=== PATIENT | male | born 1975 | race Caucasian/White ===

== ENCOUNTER 2020-08-14 12:23 | Emergency (ER) | payer OTHER, SELFPAY ==
--- NOTE | 2020-08-14 12:27 | ECG_ITS ---
Test Reason : CHEST PAIN Blood Pressure : / mmHG Vent. Rate : 090 BPM Atrial Rate : 090 BPM P-R Int : 152 ms QRS Dur : 086 ms QT Int : 358 ms P-R-T Axes : 078 073 048 degrees QTc Int : 437 ms Normal sinus rhythm Normal ECG When compared with ECG of 06-AUG-2016 09:27, Non-specific change in ST segment in Lateral leads Nonspecific T wave abnormality no longer evident in Inferior leads Nonspecific T wave abnormality no longer evident in Lateral leads Referred By: Cris Friedman Electronically Signed By:KAMALA ESTRADA MD
--- NOTE | 2020-08-14 12:27 | XR_ITS ---
EXAMINATION: XR CHEST CLINICAL INFORMATION: Chest pain COMPARISON: Previous chest x-ray January 2013 and chest CTA July 2016 TECHNIQUE: Frontal view of the chest was obtained. FINDINGS: The cardiac and mediastinal contours are normal. The lungs are clear. There is no pleural effusion or pneumothorax. Bony structures are unremarkable. XR/XR chest 1V IMPRESSION: Unremarkable examination.
[2020-08-14 12:33] VITALS: BP 168/102; PULSE 78; RESP 20; TEMP 37.1; O2SAT 97
--- NOTE | 2020-08-14 12:36 | ED_ITS ---
HPI - Chest Pain General Chief Complaint: Chest Pain Stated Complaint: chest pain Time Seen by Provider: 08/14/20 12:26 Source: patient Mode of arrival: ambulatory Limitations: no limitations History of Present Illness MD complaint: chest pain Pertinent past history: other (myocarditis) Onset (ago): day(s) (last night, did have episode 1 week ago but it resolved) Timing of current episode: constant Prior episodes: Yes Onset: during rest and during exertion Pain location: substernal and left chest Pain radiation: none Severity: moderate Quality: sharp Relieving factors: nothing Exacerbating factors: movement and other (leaning forward) Treatment prior to arrival: aspirin Related Data Home Medications Medication Instructions Recorded Confirmed No Known Home Meds 08/14/20 08/14/20 Allergies Allergy/AdvReac Type Severity Reaction Status Date / Time No Known Allergies Allergy Verified 08/14/20 12:43 Review of Systems Review of Systems: Constitutional : No Weight loss, No Fever, No Chills ENT/Mouth : No sore throat, No Rhinorrhea Eyes: No Eye Pain, No Swelling Cardiovascular : pos Chest Pain, no SOB, no Dyspnea on Exertion, No Orthopnea, No Edema, No Palpitations Respiratory : No Cough, No Sputum Gastrointestinal : pos Nausea, No Vomiting, No Diarrhea, No abdominal Pain, No Hematochezia, No Melena Genitourinary : No Dysuria, No Urinary Frequency Musculoskeletal : No joint pain, No Myalgias, No Joint Swelling Skin : No Skin Lesions, No rash Neuro : No Weakness, No Numbness, No Dizziness, No Headache Psych : No Anxiety/Panic, No Depression Heme/Lymph: No Bruising, No Lymphadenopathy Endocrine : No Polyuria, No Polydipsia All other systems reviewed and are negative [facility] Past Medical History Medical History (Updated 08/14/20 @ 14:56 by Cris Friedman DO) COVID-19 Myocarditis Social History Social History (Updated 08/14/20 @ 12:41 by Cris Friedman DO) Smoking Status: Never smoker Use of substances other than those prescribed or required for medical reasons: No Advance Directives: No Advance Directives Information Provided: No Physical Exam Vital Signs: Vital Signs: Last Vital Signs Temp 98.7 F 08/14/20 12:39 Pulse 66 08/14/20 14:27 Resp 17 08/14/20 14:27 BP 151/94 H 08/14/20 14:27 Pulse Ox 97 08/14/20 14:27 Body Mass Index 24.4 Appearance: Alert. Oriented X3. No acute distress. Eyes: Pupils equal, round and reactive to light. ENT: Pharynx normal. Neck: Normal inspection. Neck supple. CVS: Normal heart rate and rhythm. Pulses normal. No rub heard, pain with leaning forward Respiratory: No respiratory distress. Breath sounds normal. Abdomen: Soft and nontender. Skin: Skin warm and dry. Normal skin color. Normal skin turgor. Extremities: No lower extremity edema. No calf ttp Neuro: Oriented X 3. No motor deficit. No sensory deficit. Course Course Course Narrative: no acute findings stable for DC, trop negative, infl markers negative MDM - Chest Pain MDM Narrative Medical decision making narrative: 44 yo male with hx of COVID 19 in the spring (asymptomatic) and myocarditis 2016 with negative cardiac cath and CTA for dissection at that time, coming in today with sharp chest pain worse with leaning forward - EKG nonischemic will need infl markers, troponin, CXR, ddimer if positive will need PE workup given prior COVID test, declines pain medications Lab Data Result diagrams: 08/14/20 13:04 08/14/20 13:04 Labs: Lab Results 08/14/20 08/14/20 08/14/20 Range/Units 13:04 13:04 13:04 WBC 6.0 (4.8-10.8) X10*3/uL RBC 5.15 (4.60-5.80) X10*6/uL Hgb 15.2 (14.0-18.0) g/dl Hct 43.1 (42-52) % MCV 83.7 (80-98) fL MCH 29.5 (27.0-33.0) pg MCHC 35.3 (31.0-36.0) g/dl RDW 12.3 (11.0-16.0) % Plt Count 208 (160-400) X10*3/uL MPV 9.4 (9.4-12.4) fL Immature Gran % (Auto) 0.3 (0.0-0.4) % Neut % (Auto) 67.8 (45-73) % Lymph % (Auto) 24.2 (20-40) % [place] % (Auto) 6.5 (2-11) % Eos % (Auto) 0.7 (0-4) % Baso % (Auto) 0.5 (0-2) % Lymph # (Auto) 1.5 (1.2-4.9) X10*3/uL [place] # (Auto) 0.4 (0.1-1.2) X10*3/uL Eos # (Auto) 0.0 (0.0-0.4) X10*3/uL Baso # (Auto) 0.0 (0.0-0.2) X10*3/uL Abs Immat Gran (auto) 0.02 (0.00-0.03) X10*3/uL Absolute Neuts (auto) 4.1 (2.0-8.3) X10*3/uL Absolute Nucleated RBC 0.000 (0.0-0.012) X10*3/uL Nucleated RBC % (auto) 0.0 (0.0-0.2) /100WBC ESR (0-15) MM/HR PT 13.5 H (10.8-13.0) SEC INR 1.1 (0.9-1.1) APTT 30.6 (24.1-38.0) SEC D-Dimer < 200 NG/ML Sodium 136 (135-145) mmol/L Potassium 4.0 (3.3-5.1) mmol/l Chloride 103 (96-108) mmol/L Carbon Dioxide 24 (22-29) mmol/L Anion Gap 13 (12-20) BUN 12 (9-16) mg/dL Creatinine 0.81 (0.5-1.4) mg/dL Estim Creat Clear Calc 125.2 Estimated GFR > 60 Random Glucose 97 (60-115) mg/dL Calcium 8.3 L (8.4-10.2) mg/dL Magnesium 2.1 (1.6-2.6) mg/dL Troponin I High Sens (<3.5-35.0) ng/L C-Reactive Protein (< or = 0.50) mg/dL B-Natriuretic Peptide (<100) pg/mL Coronavirus (PCR) (Negative) 08/14/20 08/14/20 08/14/20 Range/Units 13:04 13:04 13:04 WBC (4.8-10.8) X10*3/uL RBC (4.60-5.80) X10*6/uL Hgb (14.0-18.0) g/dl Hct (42-52) % MCV (80-98) fL MCH (27.0-33.0) pg MCHC (31.0-36.0) g/dl RDW (11.0-16.0) % Plt Count (160-400) X10*3/uL MPV (9.4-12.4) fL Immature Gran % (Auto) (0.0-0.4) % Neut % (Auto) (45-73) % Lymph % (Auto) (20-40) % [place] % (Auto) (2-11) % Eos % (Auto) (0-4) % Baso % (Auto) (0-2) % Lymph # (Auto) (1.2-4.9) X10*3/uL [place] # (Auto) (0.1-1.2) X10*3/uL Eos # (Auto) (0.0-0.4) X10*3/uL Baso # (Auto) (0.0-0.2) X10*3/uL Abs Immat Gran (auto) (0.00-0.03) X10*3/uL Absolute Neuts (auto) (2.0-8.3) X10*3/uL Absolute Nucleated RBC (0.0-0.012) X10*3/uL Nucleated RBC % (auto) (0.0-0.2) /100WBC ESR 1 (0-15) MM/HR PT (10.8-13.0) SEC INR (0.9-1.1) APTT (24.1-38.0) SEC D-Dimer NG/ML Sodium (135-145) mmol/L Potassium (3.3-5.1) mmol/l Chloride (96-108) mmol/L Carbon Dioxide (22-29) mmol/L Anion Gap (12-20) BUN (9-16) mg/dL Creatinine (0.5-1.4) mg/dL Estim Creat Clear Calc Estimated GFR Random Glucose (60-115) mg/dL Calcium (8.4-10.2) mg/dL Magnesium (1.6-2.6) mg/dL Troponin I High Sens < 3.5 (<3.5-35.0) ng/L C-Reactive Protein 0.09 (< or = 0.50) mg/dL B-Natriuretic Peptide 25 (<100) pg/mL Coronavirus (PCR) (Negative) 08/14/20 Range/Units 13:20 WBC (4.8-10.8) X10*3/uL RBC (4.60-5.80) X10*6/uL Hgb (14.0-18.0) g/dl Hct (42-52) % MCV (80-98) fL MCH (27.0-33.0) pg MCHC (31.0-36.0) g/dl RDW (11.0-16.0) % Plt Count (160-400) X10*3/uL MPV (9.4-12.4) fL Immature Gran % (Auto) (0.0-0.4) % Neut % (Auto) (45-73) % Lymph % (Auto) (20-40) % [place] % (Auto) (2-11) % Eos % (Auto) (0-4) % Baso % (Auto) (0-2) % Lymph # (Auto) (1.2-4.9) X10*3/uL [place] # (Auto) (0.1-1.2) X10*3/uL Eos # (Auto) (0.0-0.4) X10*3/uL Baso # (Auto) (0.0-0.2) X10*3/uL Abs Immat Gran (auto) (0.00-0.03) X10*3/uL Absolute Neuts (auto) (2.0-8.3) X10*3/uL Absolute Nucleated RBC (0.0-0.012) X10*3/uL Nucleated RBC % (auto) (0.0-0.2) /100WBC ESR (0-15) MM/HR PT (10.8-13.0) SEC INR (0.9-1.1) APTT (24.1-38.0) SEC D-Dimer NG/ML Sodium (135-145) mmol/L Potassium (3.3-5.1) mmol/l Chloride (96-108) mmol/L Carbon Dioxide (22-29) mmol/L Anion Gap (12-20) BUN (9-16) mg/dL Creatinine (0.5-1.4) mg/dL Estim Creat Clear Calc Estimated GFR Random Glucose (60-115) mg/dL Calcium (8.4-10.2) mg/dL Magnesium (1.6-2.6) mg/dL Troponin I High Sens (<3.5-35.0) ng/L C-Reactive Protein (< or = 0.50) mg/dL B-Natriuretic Peptide (<100) pg/mL Coronavirus (PCR) NEGATIVE (Negative) Discharge Plan Discharge Clinical Impression: Chest pain Qualifiers: Chest pain type: unspecified Qualified Code(s): R07.9 - Chest pain, unspecified Patient Disposition: Home, Self-Care Instructions: Chest Pain (ED) Additional Instructions: return to ED for any worsening symptoms or concerns Prescriptions: No Action No Known Home Meds RF: 0 Referrals: Blaise Cloud MD [Primary Care Provider] - 2 days (if not better) Stand Alone Forms: Work/School Release Interventions: ED Discharge Assessment Last Done: 08/14/20 15:14 Discharge Date/Time: 08/14/20 15:15
[2020-08-14 12:39] VITALS: BP 145/111; PULSE 90; RESP 19; TEMP 37.1; O2SAT 96; BMI 24.4
[2020-08-14] MEDS: 0.9 % Sodium Chloride 1,000 ML 999 ML IVCONT (13:09)
[2020-08-14 13:17] LABS: MANUAL DIFF FLAG NO
[2020-08-14 13:25] LABS: Basophils Percent Auto 0.5 % (0-2); Eosinophils Percent Auto 0.7 % (0-4); Hematocrit 43.1 % (42-52); Hemoglobin 15.2 g/dl (14.0-18.0); Imm Gran Abs Auto 0.02 X10*3/uL (0.00-0.03); Imm Gran Pct Auto 0.3 % (0.0-0.4); Lymphocytes Absolute Auto 1.5 X10*3/uL (1.2-4.9); Lymphocytes Percent Auto 24.2 % (20-40); Mean Corpuscular HGB Conc 35.3 g/dl (31.0-36.0); Mean Corpuscular Hemoglobin 29.5 pg (27.0-33.0); Mean Corpuscular Volume 83.7 fL (80-98); Mean Platelet Volume 9.4 fL (9.4-12.4); Monocytes Absolute Auto 0.4 X10*3/uL (0.1-1.2); Monocytes Percent Auto 6.5 % (2-11); Neutrophils Absolute Auto 4.1 X10*3/uL (2.0-8.3); Neutrophils Percent Auto 67.8 % (45-73); Platelet Count 208 X10*3/uL (160-400); Red Blood Count 5.15 X10*6/uL (4.60-5.80); Red Cell Distribution Width 12.3 % (11.0-16.0)
[2020-08-14 13:31] LABS: INTERNATIONAL NORM RATIO 1.1 (0.9-1.1); Prothrombin Time 13.5 SEC (10.8-13.0)
[2020-08-14 13:34] LABS: D Dimer < 200 NG/ML; Partial Thromboplastin Time 30.6 SEC (24.1-38.0)
[2020-08-14 13:53] LABS: C Reactive Protein 0.09 mg/dL (< or = 0.50)
[2020-08-14 14:01] LABS: B Type Natriuretic Peptide 25 pg/mL (<100); Troponin-I High Sensitivity < 3.5 ng/L (<3.5-35.0)
[2020-08-14 14:09] LABS: Anion Gap 13 (12-20); Blood Urea Nitrogen 12 mg/dL (9-16); Calcium 8.3 mg/dL (8.4-10.2); Carbon Dioxide 24 mmol/L (22-29); Chloride 103 mmol/L (96-108); Creatinine Clr Calc Pharmacy 125.2; Estimated Glomerular Filt Rate > 60; Glucose Random 97 mg/dL (60-115); Magnesium 2.1 mg/dL (1.6-2.6); Sodium 136 mmol/L (135-145)
[2020-08-14 14:11] LABS: Erythrocyte Sedimentation Rate 1 MM/HR (0-15)
[2020-08-14 14:22] LABS: SARS COV2 PCR INHOUSE NEGATIVE (Negative)
[2020-08-14 14:27] VITALS: BP 151/94; PULSE 66; RESP 17; O2SAT 97
== END 2020-08-14 15:15 | disposition home or self-care (01) ==
PROVIDERS: Emergency Provider Emergency Medicine; PCP Internal Medicine
DX: R07.9 Chest pain, unspecified (principal); Z20.828 Contact with and (suspected) exposure to other viral communicable diseases
CPT/HCPCS: 36415; 71045; 80048; 83735; 83880; 84484; 85025; 85379; 85610; 85652; 85730; 86140; 93005; 96360; 99284; 99285; U0003

== ENCOUNTER 2021-07-07 14:11 | Outpatient (REF) | payer OTHER, SELFPAY ==
[2021-07-07 14:36] LABS: COVID-19 Test Negative (Negative)
== END 2021-07-07 14:12 | disposition home or self-care (01) ==
LOC: HO.LAB 14:11
PROVIDERS: PCP Internal Medicine; Visit Provider Internal Medicine
DX: Z20.822 Contact with and (suspected) exposure to COVID-19 (principal)
CPT/HCPCS: 36415; 87635

== ENCOUNTER 2021-08-01 15:31 | Outpatient (REF) | payer OTHER, SELFPAY | END 2021-08-01 15:32 | disposition home or self-care (01) | LOC: HO.LAB 15:31 | PROVIDERS: Emergency Medicine; Visit Provider Internal Medicine | DX: Z20.822 Contact with and (suspected) exposure to COVID-19 (principal) | CPT/HCPCS: U0003; U0005 ==

== ENCOUNTER 2021-09-07 10:25 | Outpatient (REF) | payer OTHER, SELFPAY ==
--- NOTE | ~2021-09-07 | MR_ITS ---
EXAMINATION: MR BRAIN WITHOUT AND WITH CONTRAST CLINICAL INFORMATION: Hypertension. Twitching of right biceps. COMPARISON: None. TECHNIQUE: Multiplanar, multisequence imaging of the brain was performed before and after the intravenous administration of 8.5 mL of Gadavist. FINDINGS: No diffusion abnormalities are identified to suggest an acute infarct. The ventricles are normal in size. No mass effect or midline shift is seen. Nonspecific minimal scattered white matter signal changes noted. No extra-axial fluid collections are seen. The brainstem and cerebellum are normal. On postcontrast imaging, there is no abnormal parenchymal or leptomeningeal enhancement. The gradient refocused acquisition is normal. The craniovertebral junction, marrow signal, and midline structures are normal. The major intracranial flow voids at the level of the [place] are preserved. The dural venous sinus flow voids are maintained. The mastoid air cells are well aerated. There is mild to moderate ethmoid sinus mucosal thickening and milder mucosal thickening with small retention cysts in the maxillary sinuses. MR/MR head/brain wo/w con IMPRESSION: No acute intracranial process. Minimal scattered nonspecific white matter signal changes.
[2021-09-07 10:48] LABS: Hematocrit 47.4 % (42.0-52.0); Hemoglobin 16.3 g/dl (14.0-18.0); Mean Corpuscular HGB Conc 34.4 g/dl (31.0-36.0); Mean Corpuscular Hemoglobin 29.4 pg (27.0-33.0); Mean Corpuscular Volume 85.4 fL (80.0-98.0); Mean Platelet Volume 8.7 fL (9.4-12.4); Platelet Count 234 X10*3/uL (160-400); Red Blood Count 5.55 X10*6/uL (4.60-5.80); Red Cell Distribution Width 12.7 % (11.0-16.0); White Blood Count 8.4 X10*3/uL (4.8-10.8)
[2021-09-07 11:13] LABS: Estimated Average Glucose 94 mg/dL; Hemoglobin A1c % 4.9 %
[2021-09-07 11:17] LABS: Alanine Aminotransferase 20 U/L (0-40); Albumin Level 4.9 g/dL (3.5-5.0); Alkaline Phosphatase 53 U/L (39-117); Anion Gap 14 (12-20); Aspartate Amino Transferase 8 U/L (5-37); Bilirubin Direct 0.3 mg/dL (0.0-0.5); Blood Urea Nitrogen 10 mg/dL (9-16); Calcium 9.6 mg/dL (8.4-10.2); Carbon Dioxide 25 mmol/L (22-29); Chloride 105 mmol/L (96-108); Cholesterol 194 mg/dL; Estimated Glomerular Filt Rate > 60; Glucose Random 102 mg/dL (60-115); HDL Cholesterol 39 mg/dL; LDL Cholesterol Calculated 130 mg/dl; Magnesium 2.2 mg/dL (1.6-2.6); Potassium 4.5 mmol/L (3.3-5.1); Sodium 139 mmol/L (135-145); Total Protein 7.8 g/dL (6.5-8.0); Triglycerides 126 mg/dL
[2021-09-07 11:37] LABS: Thyroid Stimulating Hormone 1.39 uIU/mL (0.32-4.0)
== END 2021-09-07 10:26 | disposition home or self-care (01) ==
LOC: HO.LAB 10:25
PROVIDERS: PCP Internal Medicine; Visit Provider Nurse Practitioner Primary Care
DX: R25.3 Fasciculation (principal); I10 Essential (primary) hypertension
CPT/HCPCS: 36415; 70553; 80048; 80061; 80076; 82550; 83036; 83735; 84443; 85027; A9585

== ENCOUNTER 2021-10-25 09:08 | Outpatient (REF) | payer OTHER, SELFPAY ==
--- NOTE | 2021-10-25 09:11 | EMG_ITS ---
Right median and ulnar motor and sensory studies were performed. Right radial, medial, and lateral antecubital sensory studies were performed and some paraspinal and limb muscles were tested with a needle. IMPRESSION: 1. Mild right ulnar neuropathy across elbow. 2. No evidence of a proximal nerve entrapment. MD RANI Tovar/CANDY / [phone]
== END 2021-10-25 09:09 | disposition home or self-care (01) ==
LOC: HO.NEURO 09:08
PROVIDERS: Visit Provider Nurse Practitioner Family
DX: R25.3 Fasciculation (principal)
CPT/HCPCS: 95886; 95910

== ENCOUNTER → 2022-02-08 09:52 | Outpatient (BNVA) | payer OTHER, SELFPAY | PROVIDERS: PCP Internal Medicine; Referring Provider Internal Medicine; Visit Provider Nurse Practitioner Family | DX: Z12.11 Encounter for screening for malignant neoplasm of colon (principal) ==

== ENCOUNTER 2022-06-21 08:35 | Day surgery (SDC) | payer OTHER, SELFPAY ==
[2022-06-17 14:49] VITALS: BMI 25.7
--- NOTE | 2022-06-20 14:35 | HO.ANESPROP2 ---
Documented by User: Bridget Baeza NP 06/20/22 14:36 HPI - Anesthesia Eval Consult details Narrative: 46yo M for Colonoscopy PMFSH Active Problems Active Problems: All Active Problems (Updated 06/17/22 @ 14:49 by Cheryle Mckeon, RN) Muscle twitching (Acute) Annual physical exam (Acute) Screening for colon cancer (Acute) Past Medical History Medical History COVID-19 Myocarditis Surgical History Surgical History Hx of straightening of nasal septum Social History Social History Housing: House Patient Tobacco Use Status: Never used Tobacco Tobacco use type: Cigarette e-Cigarette/Vaping Use: Never Used Second Hand Smoke Exposure: No Advance Directives: No Advance Directives Information Provided: Yes (brochure mailed) Advance Directives on File: No service: No Current occupational status: employed Cognitive needs: No Hearing needs: No Vision needs: No Meds Allergies Allergy/AdvReac Type Severity Reaction Status Date / Time No Known Allergies Allergy Verified 06/21/22 09:21 Home Medications Medication Instructions Recorded Confirmed Last Taken Type No Known Home Meds 06/21/22 06/21/22 Unknown History Exam Exam Date and Time: June 20, 2022 1435 Height,Weight and Vital Signs: Height 5 ft 11 in Weight 83.915 kg Assessment and Plan Assessment Anesthesia Assessment: Chart Reviewed Documented by User: Heidi Charles MD 06/21/22 10:47 PMFSH Past Medical History Medical History COVID-19 Myocarditis Surgical History Surgical History Hx of straightening of nasal septum History of Problems with Anesthesia: No Social History Social History Housing: House Patient Tobacco Use Status: Never used Tobacco Tobacco use type: Cigarette e-Cigarette/Vaping Use: Never Used Second Hand Smoke Exposure: No Advance Directives: No Advance Directives Information Provided: Yes (brochure mailed) Advance Directives on File: No service: No Current occupational status: employed Cognitive needs: No Hearing needs: No Vision needs: No Meds Allergies Allergy/AdvReac Type Severity Reaction Status Date / Time No Known Allergies Allergy Verified 06/21/22 09:21 Home Medications Medication Instructions Recorded Confirmed Last Taken Type No Known Home Meds 06/21/22 06/21/22 Unknown History Exam Airway Mallampati Class: II TM Dist: >3cm Neck ROM: Full Loose/Missing/Broken Teeth: No Heart: RRR Lungs: CTA Assessment and Plan Assessment Anesthesia Assessment: Anesthesia Plan Discussed Final Anesthetic Review History of Problems with Anesthesia: No NPO: Yes ASA Class: II Final Preanesthetic Review: Meds/Allgs Chart Reviewed, Consent Obtained/Reviewed and Anes Risks/Benef Reviewed Patient Risk: Low Procedure Risk: Low Anesthetic Plan Anesthetic Plan: MAC: Disposition: Standard PACU
[2022-06-21 09:53] VITALS: BP 154/89; PULSE 71; RESP 16; TEMP 36.8; O2SAT 97
[2022-06-21] MEDS: Lactated Ringers 1,000 ML 100 ML IVCONT (10:07)
--- NOTE | 2022-06-21 10:11 | MHC.SHP ---
Pre-Procedural Eval Section A Date of Service: 06/21/22 The patient is an INPATIENT: No The History & Physical has been completed within 30 days and I have reviewed it.: No Section B Chief Complaint: screening Details of Present Illness: Colon cancer screening Relevant Family History (Specify if Yes): No Relevant Social History: None Present Medications: see Short Stay Collaborative assessment Medical History: Significant History (COVID-19 Myocarditis) History of Previous Operations: No relevant previous surgery Allergies: Allergies Allergy/AdvReac Type Severity Reaction Status Date / Time No Known Allergies Allergy Verified 06/21/22 09:21 Review of Systems Sugical H&P ROS: Negative: Constitution, Cardiovascular, Respiratory and Gastrointestinal Exam Surgical H&P Exam: Normal: Heart, Normal: Lungs, Normal: Extremities and Normal: Abdomen Plan Diagnosis/Plan: Unchanged I have reviewed the history and physical and performed a pertinent physical examination on my patient. No changes have occurred unless specified.
--- NOTE | 2022-06-21 10:12 | PM.OP ---
Brief Operative Note Date of Service: 06/21/22 Pre-op diagnosis: Colon cancer screening Post-op diagnosis: other ( colon polyps) Procedure: COLONOSCOPY TILL CECUM WITH BIOPSIES, SNARE POLYPECTOMY AND SUBMUCOSAL INJECTION Consent: Indications for the procedure and potential complications of bleeding, perforation, reaction to medications and missed diagnosis were discussed with the patient and informed consent was obtained. Instrument: Olympus PCF H 190 L variable stiffness pediatric colonoscope Monitoring: Vital signs and clinical assessment, intermittent blood pressure monitoring, continuous EKG monitoring, Pulse oximetry and Carbon Dioxide monitoring were done throughout the procedure. Colon withdrawl time was 22 minutes. Procedure: The patient was placed in the left lateral decubitis position and pre-procedure medications were administered. After a digital rectal examination of the ano-rectum, the video colonoscope was inserted into the rectum and advanced through the colon to the cecum. The colonoscope was slowly withdrawn in a retrograde panoramic fashion and the colon mucosa was carefully examined including a retroflexed view of the rectum. Findings and interventions are described below. Procedure Difficulty: Without difficulty Findings: Terminal Ileum: Not evaluated Cecum: Normal Ascending Colon: A 12 - 15 mm flat polyp in the proximal AC (just distal to ICV) - raised with 10 cc of Orise solution and removed with a stiff snare. Transverse Colon: A 3-4 mm sessile polyp removed with a cold bx Descending Colon: Normal Sigmoid Colon: Normal Rectum: Normal Ano-rectum: Normal Colon preparation: Good after some irrigation Impression and Post Procedure Diagnosis: Colonoscopy Findings: One small and one medium sized polyps removed Plan: Await pathology results Patient has an appointment on 07/05/22 in the GI Clinic with Madisyn Ray FNP-BC. Repeat Colonoscopy interval based on path results - in 3 - 5 years if polyps are adenomatous and 10 years if polyps are hyperplastic. Above findings were reviewed with the patient and colon polyps handouts was given in the discharge area Surgeon: Nichelle Cuellar MD Anesthesia: MAC (Dr Charles) Was an Correspondence Representative used for this Procedure?: Yes Correspondence Representative: Alejandrina Higginbotham Estimated blood loss (mL): 0 Pathology: other (a. transverse colon polyp b. ascending colon polyp (orise used)) Condition: stable Disposition: PACU
--- NOTE | 2022-06-21 10:32 | P.OP_ITS ---
Operative Note Operative Note Date of Service: 06/21/22 Narrative: Pre-op diagnosis: Colon cancer screening Post-op diagnosis:?other ( colon polyps) Procedure: COLONOSCOPY TILL CECUM WITH BIOPSIES, SNARE POLYPECTOMY AND SUBMUCOSAL INJECTION Consent: Indications for the procedure and potential complications of bleeding, perforation, reaction to medications and missed diagnosis were discussed with the patient and informed consent was obtained. Instrument: Olympus PCF H 190 L variable stiffness pediatric colonoscope Monitoring: Vital signs and clinical assessment, intermittent blood pressure monitoring, continuous EKG monitoring, Pulse oximetry and Carbon Dioxide monitoring were done throughout the procedure. Colon withdrawl time was 22 minutes. Procedure: The patient was placed in the left lateral decubitis position and pre-procedure medications were administered. After a digital rectal examination of the ano-rectum, the video colonoscope was inserted into the rectum and advanced through the colon to the cecum. The colonoscope was slowly withdrawn in a retrograde panoramic fashion and the colon mucosa was carefully examined including a retroflexed view of the rectum. Findings and interventions are described below. Procedure Difficulty: Without difficulty Findings: Terminal Ileum: Not evaluated Cecum:? Normal Ascending Colon:? A 12 - 15 mm flat polyp in the proximal AC (just distal to ICV) - raised with 10 cc of Orise solution and removed with a stiff snare. Transverse Colon:? A 3-4 mm sessile polyp removed with a cold bx Descending Colon:? Normal Sigmoid Colon:? Normal Rectum:? Normal Ano-rectum:? Normal Colon preparation:? Good after some irrigation Impression and Post Procedure Diagnosis: Colonoscopy Findings: One small and one medium sized polyps removed Plan: Letter will be sent with pathology results Patient has an appointment on 07/05/22 in the GI Clinic with Madisyn Ray FNP- BC. Repeat Colonoscopy interval based on path results - in 3 - 5? years if polyps are adenomatous and 10 years if polyps are hyperplastic. Above findings were reviewed with the patient and colon polyps handouts was given in the discharge area Surgeon: Nichelle Cuellar MD Anesthesia:?MAC (Dr Charles) Was an Aviation Safety Officer used for this Procedure?:?Yes Aviation Safety Officer:?Alejandrina Higginbotham Estimated blood loss (mL):?0 Pathology:?other (a. transverse colon polyp ? b. ascending colon polyp (orise used)) Condition:?stable Disposition:?PACU
[2022-06-21 11:15] VITALS: BP 102/57; PULSE 69; RESP 20; TEMP 36.5; O2SAT 98
[2022-06-21 11:30] VITALS: BP 120/83; PULSE 74; RESP 16; TEMP 36.5; O2SAT 99
== END 2022-06-21 16:13 | disposition home or self-care (01) ==
PROVIDERS: PCP Internal Medicine; Visit Provider Internal Medicine Gastroenterology
PROC: 0DJD8ZZ Inspection of Lower Intestinal Tract, Via Natural or Artificial Opening Endoscopic (ICD-10-PCS; CPT 45378; principal; 2022-06-21 10:30)
DX: Z12.11 Encounter for screening for malignant neoplasm of colon (principal); D12.2 Benign neoplasm of ascending colon; K63.5 Polyp of colon; Z86.16 Personal history of COVID-19
CPT/HCPCS: 45385; 45380; 45381; 88305

== ENCOUNTER 2022-07-05 08:56 | Outpatient (REF) | payer OTHER, SELFPAY ==
[2022-07-05 09:54] LABS: Hematocrit 46.6 % (42.0-52.0); Hemoglobin 16.3 g/dl (14.0-18.0); Mean Corpuscular Volume 85.7 fL (80.0-98.0); Mean Platelet Volume 9.3 fL (9.4-12.4); Platelet Count 225 X10*3/uL (160-400); Red Blood Count 5.44 X10*6/uL (4.60-5.80); Red Cell Distribution Width 12.8 % (11.0-16.0); White Blood Count 3.6 X10*3/uL (4.8-10.8)
[2022-07-05 10:47] LABS: Alanine Aminotransferase 18 U/L (0-40); Albumin Level 4.8 g/dL (3.5-5.0); Alkaline Phosphatase 46 U/L (39-117); Anion Gap 15 (12-20); Aspartate Amino Transferase 10 U/L (5-37); Bilirubin Total 0.3 mg/dL (0.0-1.0); Blood Urea Nitrogen 12 mg/dL (9-16); Calcium 8.9 mg/dL (8.4-10.2); Carbon Dioxide 25 mmol/L (22-29); Chloride 106 mmol/L (96-108); Cholesterol 233 mg/dL; Estimated Glomerular Filt Rate > 60; Glucose Random 85 mg/dL (60-115); Potassium 4.6 mmol/L (3.3-5.1); Sodium 141 mmol/L (135-145); Total Protein 7.4 g/dL (6.5-8.0)
[2022-07-05 10:55] LABS: TSH reflex Free T4 0.87 uIU/mL (0.32-4.0)
[2022-07-09 11:51] LABS: Vitamin D 25-OH, D2 <4 ng/mL; Vitamin D 25-OH, D3 26 ng/mL; Vitamin D 25-OH, Total 26 ng/mL (30-100)
== END 2022-07-05 08:57 | disposition home or self-care (01) ==
LOC: HO.LAB 08:56
PROVIDERS: PCP Internal Medicine; Visit Provider Nurse Practitioner Family
DX: K52.9 Noninfective gastroenteritis and colitis, unspecified (principal); E55.9 Vitamin D deficiency, unspecified; Z86.39 Personal history of other endocrine, nutritional and metabolic disease
CPT/HCPCS: 36415; 80053; 82306; 82465; 84443; 85027

== ENCOUNTER 2023-07-01 08:11 | Outpatient (REF) | payer OTHER, SELFPAY ==
[2023-07-01 09:03] LABS: Hematocrit 47.4 % (42.0-52.0); Hemoglobin 16.2 g/dl (14.0-18.0); Mean Corpuscular HGB Conc 34.2 g/dl (31.0-36.0); Mean Corpuscular Hemoglobin 29.9 pg (27.0-33.0); Mean Corpuscular Volume 87.5 fL (80.0-98.0); Mean Platelet Volume 9.2 fL (9.4-12.4); Platelet Count 210 X10*3/uL (160-400); Red Blood Count 5.42 X10*6/uL (4.60-5.80); Red Cell Distribution Width 12.7 % (11.0-16.0); White Blood Count 4.6 X10*3/uL (4.8-10.8)
[2023-07-01 09:34] LABS: Alanine Aminotransferase 13 U/L (0-40); Albumin Level 4.4 g/dL (3.5-5.0); Alkaline Phosphatase 41 U/L (39-117); Anion Gap 14 (12-20); Aspartate Amino Transferase 11 U/L (5-37); Bilirubin Total 1.1 mg/dL (0.0-1.0); Blood Urea Nitrogen 11 mg/dL (9-16); Calcium 8.8 mg/dL (8.4-10.2); Carbon Dioxide 24 mmol/L (22-29); Chloride 104 mmol/L (96-108); Cholesterol 238 mg/dL (<200); Estimated Glomerular Filt Rate > 60; Glucose Random 95 mg/dL (60-115); HDL Cholesterol 49 mg/dL (>40); LDL Cholesterol Calculated 158 mg/dL (<100); Potassium 4.2 mmol/L (3.3-5.1); Sodium 138 mmol/L (135-145); Total Protein 6.9 g/dL (6.5-8.0); Triglycerides 157 mg/dL (<150)
[2023-07-01 09:54] LABS: TSH reflex Free T4 1.26 uIU/mL (0.32-4.0)
== END 2023-07-01 08:12 | disposition home or self-care (01) ==
LOC: HO.LAB 08:11
PROVIDERS: PCP Internal Medicine; Visit Provider Nurse Practitioner Family
DX: K21.9 Gastro-esophageal reflux disease without esophagitis (principal); K59.00 Constipation, unspecified; Z86.79 Personal history of other diseases of the circulatory system; E78.5 Hyperlipidemia, unspecified
CPT/HCPCS: 36415; 80053; 80061; 84443; 85027

== ENCOUNTER 2023-08-29 13:46 | Outpatient (REF) | payer OTHER, SELFPAY ==
--- NOTE | ~2023-08-29 | MR_ITS ---
EXAMINATION: MR KNEE WITHOUT CONTRAST, RIGHT CLINICAL INFORMATION: Sprain of the right knee. Pain. COMPARISON: None available. TECHNIQUE: MRI of the knee without contrast was performed using routine sequences on a high-field scanner. FINDINGS: MENISCI: Medial Meniscus: There is a horizontal tear of the posterior horn and body extending to the inner margin of the meniscus and undersurface. A peripheral undersurface flap fragment is extruded from the joint line. This measures 1.7 x 0.5 cm and is situated in the meniscotibial recess. A small 4 mm parameniscal cyst is present at the junction of the posterior horn and body. Surrounding soft tissues are mildly edematous. Lateral Meniscus: Intact. LIGAMENTS: Cruciate: Intact. Collateral: Edema signal around the MCL is likely reactive to the underlying meniscal abnormality. Collateral ligaments are intact. EXTENSOR MECHANISM: Intact. ARTICULAR CARTILAGE/BONE: Patellofemoral Compartment: Normal. Medial Compartment: Normal. Lateral Compartment: Normal. JOINT FLUID AND BURSAE: Trace joint effusion. No Veronica's cyst. MR/MR knee RT wo con IMPRESSION: 1. Horizontal tear of the posterior horn and body of the medial meniscus with a small parameniscal cyst. 2. Trace joint effusion.
== END 2023-08-29 13:47 | disposition home or self-care (01) ==
LOC: HO.MRI 13:46
PROVIDERS: Visit Provider Nurse Practitioner Primary Care
DX: S83.8X1A Sprain of other specified parts of right knee, initial encounter (principal)
CPT/HCPCS: 73721

== ENCOUNTER 2023-09-08 08:38 | Outpatient (AMB) | payer OTHER, SELFPAY ==
--- NOTE | 2023-09-08 08:42 | MHC.OFFVIS ---
Intake Vital Signs 09/08/23 08:45 Height 5 ft 11 in Weight 180 lb BMI 25.1 Intake Visit Reasons: New Pt - Right Knee MMT Intake Note: Jaya is a 47 year old male who presents today as a new patient with complaints of right knee pain. Reports that he slipped while doing yard work and twisted his knee. Patient was seen at [facility] clinic who ordered an MRI. MRI shows MMT. Currently he is having pain in the knee with walking and prolonged standing. He is wearing a brace since the injury. Allergies No Known Allergies Allergy (Verified 09/08/23 08:45) HPI New Pt - Right Knee MMT HPI Details Jaya is a 47 year old man who presents for an MRI review of his right knee. He reports an injury while working in his yard, when he slipped & twisted his knee. He was seen at a walk-in clinic, who ordered an MRI. He has been wearing a knee brace since his injury. He reports only some occasional pain with activity, or when his knee has been held in place for prolonged periods such as sleeping, but this has greatly improved since his injury, and he says he is not limited in his activities. He does have worse pain when using a treadmill or with running activities. At the time following this injury, he had pain with every step, along with a popping sensation in his knee. He says he used to have occasional knee pain with activity in the past, but his pain was in his entire knee opposed to one specific spot. [facility] Medical History Sessile colonic polyp COVID-19 Myocarditis Surgical History Hx of colonoscopy Hx of straightening of nasal septum Social History Housing: House Patient Tobacco Use Status: Never used Tobacco Tobacco use type: Cigarette e-Cigarette/Vaping Use: Never Used Second Hand Smoke Exposure: No service: No Current occupational status: employed Cognitive needs: No Hearing needs: No Vision needs: No Review of Systems Const All systems reviewed & are unremarkable except as noted in HPI and below Physical Exam Vital Signs: BMI result Body Mass Index 25.1 Const General: no acute distress, alert and awake Orientation/consciousness: patient oriented x3 HEENT Head: Yes normocephalic and Yes atraumatic Eyes EOM: EOMs intact bilaterally Resp Effort & Inspection: normal respiratory effort and able to speak in complete sentences Cardio Jugular venous distension: no JVD Skin General skin exam: turgor normal Rashes: no rashes Neuro General: patient oriented x3 Extrem Other: No JLT FUll ROM Neg Steinmen's Psych Appearance: grossly normal Affect: normal affect Attitude: cooperative Results Reviewed Results Reviewed: I personally reviewed relevant MR images 1. Horizontal tear of the posterior horn and body of the medial meniscus with a small parameniscal cyst. 2. Trace joint effusion. Assessment & Plan Assessment & Plan (1) Tear of medial meniscus of right knee: Code(s): S83.241A - Other tear of medial meniscus, current injury, right knee, initial encounter Plan: This is a 47-year-old gentleman with a right knee medial meniscus tear. This occurred a few weeks ago but he is pretty much asymptomatic at this point. I reviewed the MRI with him and he certainly has a large medial meniscus tear that I think may benefit from surgery but at this time he is without symptoms. I reviewed the findings with him and discussed the natural history of meniscus tears. If he does have symptoms it he finds displeasing I do think he would benefit from arthroscopy. May return to work at this point and he will let me know how he fares Plan Scribed for Alcon Mcneal MD by Camacho Cintron, phlebotomist medical lab assistant, on 09/08/23 at 9:00 AM, EST. Coding Level of Care Code New Pt Level 4 (08190) Diagnoses Tear of medial meniscus of right knee S83.241A
[2023-09-08 08:45] VITALS: BMI 25.1
== END 2023-09-08 09:04 | disposition home or self-care (01) ==
PROVIDERS: PCP Internal Medicine; Visit Provider Orthopaedic Surgery
DX: S83.241A Other tear of medial meniscus, current injury, right knee, initial encounter (principal)
CPT/HCPCS: 99204

== ENCOUNTER → 2023-09-08 08:38 | Outpatient (BNVA) | payer OTHER, SELFPAY | PROVIDERS: PCP Internal Medicine; Visit Provider Orthopaedic Surgery ==

== ENCOUNTER 2024-04-20 12:37 | Outpatient (REF) | payer OTHER, SELFPAY ==
--- NOTE | ~2024-04-20 | XR_ITS ---
EXAMINATION: XR KNEE, LEFT CLINICAL INFORMATION: Injury. Pain after falling COMPARISON: None available. TECHNIQUE: Four views of the left knee. FINDINGS: No fracture, dislocation or destructive process. There may be a small joint effusion. XR/XR knee LT 4V IMPRESSION: No fracture.
== END 2024-04-20 12:38 | disposition home or self-care (01) ==
LOC: HO.XRAY 12:37
PROVIDERS: PCP Internal Medicine; Visit Provider Physician Assistant Medical
DX: S89.92XD Unspecified injury of left lower leg, subsequent encounter (principal)
CPT/HCPCS: 73564

== ENCOUNTER 2024-06-01 12:26 | Outpatient (REF) | payer OTHER, SELFPAY ==
--- NOTE | ~2024-06-01 | XR_ITS ---
EXAMINATION: XR KNEE, RIGHT XR KNEE, LEFT CLINICAL INFORMATION: Pain in the left knee, pain in the right knee. COMPARISON: None available. TECHNIQUE: Standing AP view of both knees. Additional patella and lateral view of the left knee. FINDINGS: LEFT KNEE: The bones, joints and soft tissues are normal. No joint space narrowing. No effusion. LIMITED RIGHT KNEE AP UPRIGHT: The medial and lateral compartments are normal. Surrounding bone and soft tissue is normal. XR/XR knee LT 2V IMPRESSION: LEFT KNEE: Normal. RIGHT KNEE: Normal. Electronically signed by: Adalberto Carr MD 06/22/2024 07:26 AM EDT
--- NOTE | ~2024-06-01 | XR_ITS ---
EXAMINATION: XR KNEE, RIGHT XR KNEE, LEFT CLINICAL INFORMATION: Pain in the left knee, pain in the right knee. COMPARISON: None available. TECHNIQUE: Standing AP view of both knees. Additional patella and lateral view of the left knee. FINDINGS: LEFT KNEE: The bones, joints and soft tissues are normal. No joint space narrowing. No effusion. LIMITED RIGHT KNEE AP UPRIGHT: The medial and lateral compartments are normal. Surrounding bone and soft tissue is normal. XR/XR knee RT 1V IMPRESSION: LEFT KNEE: Normal. RIGHT KNEE: Normal. Electronically signed by: Adalberto Carr MD 06/22/2024 07:26 AM EDT
== END 2024-06-01 12:27 | disposition home or self-care (01) ==
LOC: HO.XRAY 12:26
PROVIDERS: PCP Internal Medicine; Visit Provider Physician Assistant
DX: M25.561 Pain in right knee (principal); M25.562 Pain in left knee; M23.92 Unspecified internal derangement of left knee
CPT/HCPCS: 73560

== ENCOUNTER 2024-06-01 13:53 | Outpatient (AMB) | payer OTHER, SELFPAY ==
--- NOTE | 2024-06-01 14:26 | MHC.OFFVIS ---
Vital Signs 06/01/24 14:28 Height 5 ft 11 in Weight 180 lb BMI 25.1 Intake Visit Reasons: New prob- LT knee pain/ injury Intake Note: Jaya a 48 year old male who presents today for an evaluation of left knee pain. Patient reports about a month ago while he was fishing he slipped causing him to hit his knee at the medial aspect of knee. Currently he has intermittent stabbing pain that is worse in the mornings. No previous tx. Allergies No Known Allergies Allergy (Verified 06/01/24 14:30) Medication List - Last Reconciled 06/01/24 by Nallely Proctor PA-C No Known Home Meds HPI HPI New prob- LT knee pain/ injury: Details: 48-year-old gentleman presents to the office today for an injury he sustained to his left knee approximately 5 weeks ago. He states he was fishing when he slipped and banged his knee and fell. He did notice some medial-sided knee pain. He states if he has a busy day at work and is on his feet all day he does notice some discomfort in the knee. He denies catching or locking with planting or twisting. [facility], [facility] Medical History Sessile colonic polyp COVID-19 Myocarditis Surgical History Hx of colonoscopy Hx of straightening of nasal septum Social History Housing: House Patient Tobacco Use Status: Never used Tobacco Tobacco use type: Cigarette e-Cigarette/Vaping Use: Never Used Second Hand Smoke Exposure: No service: No Current occupational status: employed Cognitive needs: No Hearing needs: No Vision needs: No Review of Systems Const All systems reviewed & are unremarkable except as noted in HPI and below Physical Exam Vital Signs: BMI result Body Mass Index 25.1 Const General: cooperative and no acute distress Orientation/consciousness: patient oriented x3 Resp Effort & Inspection: normal respiratory effort and able to speak in complete sentences Cardio Peripheral pulses: Peripheral pulses 2+ throughout Neuro General: patient oriented x3 Extrem Other: Left knee skin intact, no erythema or joint effusion. Tenderness along the medial joint line. ROM full with crepitus. Positive steinmans. No ligamentous laxity. NVI. Results Reviewed Results Reviewed: Xrays were obtained in the office today and personally reviewed by me of the left knee are negative for acute fracture or dislocations. Assessment & Plan Assessment & Plan (1) Internal derangement of left knee: Code(s): M23.92 - Unspecified internal derangement of left knee Category: Medical Plan: MRI of the left knee was ordered to further evaluate the integrity of the meniscus. He will continue with activities as tolerated and we will discuss the results once completed. Orders: Orders MR knee LT wo con Today M17.12 - Unilateral primary osteoarthritis, left knee XR knee LT 2V Today M25.562 - Pain in left knee XR knee RT 1V Today M25.561 - Pain in right knee Coding Level of Care Code Est Pt Level 3 (15477) Diagnoses Internal derangement of left knee M23.92
[2024-06-01 14:28] VITALS: BMI 25.1
== END 2024-06-01 14:57 | disposition home or self-care (01) ==
PROVIDERS: PCP Internal Medicine; Visit Provider Physician Assistant
DX: M23.92 Unspecified internal derangement of left knee (principal)
CPT/HCPCS: 99213

== ENCOUNTER 2024-06-08 14:04 | Outpatient (REF) | payer OTHER, SELFPAY ==
--- NOTE | ~2024-06-08 | MR_ITS ---
EXAMINATION: MR KNEE WITHOUT CONTRAST, LEFT CLINICAL INFORMATION: Left knee pain COMPARISON: Radiographs 06/01/2024 TECHNIQUE: MRI of the knee without contrast was performed using routine sequences on a high-field scanner. FINDINGS: MENISCI: Medial Meniscus: Intrameniscal signal at the junction of the body and posterior horn which approximates the inferior articular surface although no definite tear. This may represent a contusion or degeneration. Lateral Meniscus: Intact LIGAMENTS: Cruciate: Intact Collateral: Intact EXTENSOR MECHANISM: Intact ARTICULAR CARTILAGE/BONE: Patellofemoral Compartment: Normal Medial Compartment: Marked marrow edema at the anteromedial aspect of the tibia with probable small impaction fracture at the anteromedial periphery. Mild marrow edema also in the peripheral posterior medial aspect of the femoral condyle. No chondral defect. Lateral Compartment: Normal JOINT FLUID AND BURSAE: No significant joint effusion. MR/MR knee LT wo con IMPRESSION: 1. Probable small subchondral impaction fracture at the peripheral anteromedial aspect of the medial tibia with marked underlying marrow edema. Mild marrow edema at the peripheral posteromedial aspect of the medial femoral condyle. No significant joint effusion. 2. Intrameniscal signal at the junction of the body and posterior horn of the medial meniscus which approximates the inferior articular surface although no definite tear. This may represent a contusion or degeneration. Electronically signed by: Zeb Guzman MD 06/11/2024 02:52 PM EDT
== END 2024-06-08 14:05 | disposition home or self-care (01) ==
LOC: HO.MRI 14:04
PROVIDERS: PCP Internal Medicine; Visit Provider Physician Assistant
DX: M17.12 Unilateral primary osteoarthritis, left knee (principal)
CPT/HCPCS: 73721

== ENCOUNTER 2024-06-10 07:06 | Outpatient (REF) | payer OTHER, SELFPAY ==
[2024-06-10 07:58] LABS: Hematocrit 45.7 % (42.0-52.0); Hemoglobin 15.8 g/dl (14.0-18.0); Mean Corpuscular HGB Conc 34.6 g/dl (31.0-36.0); Mean Corpuscular Hemoglobin 29.8 pg (27.0-33.0); Mean Corpuscular Volume 86.1 fL (80.0-98.0); Mean Platelet Volume 9.2 fL (9.4-12.4); Platelet Count 231 X10*3/uL (160-400); Red Blood Count 5.31 X10*6/uL (4.60-5.80); Red Cell Distribution Width 12.6 % (11.0-16.0)
[2024-06-10 08:14] LABS: Alanine Aminotransferase 19 U/L (0-40); Albumin Level 4.3 g/dL (3.5-5.0); Alkaline Phosphatase 45 U/L (39-117); Anion Gap 9 (12-20); Aspartate Amino Transferase 10 U/L (5-37); Bilirubin Direct 0.2 mg/dL (0.0-0.5); Bilirubin Total 0.8 mg/dL (0.0-1.0); Blood Urea Nitrogen 12 mg/dL (9-16); Calcium 8.9 mg/dL (8.4-10.2); Carbon Dioxide 28 mmol/L (22-29); Chloride 105 mmol/L (96-108); Cholesterol 207 mg/dL (<200); Estimated Glomerular Filt Rate > 60; Glucose Random 94 mg/dL (60-115); HDL Cholesterol 44 mg/dL (>40); LDL Cholesterol Calculated 139 mg/dL (<100); Potassium 4.2 mmol/L (3.3-5.1); Sodium 138 mmol/L (135-145); Total Protein 7.1 g/dL (6.5-8.0); Triglycerides 121 mg/dL (<150)
[2024-06-10 08:28] LABS: Thyroid Stimulating Hormone 1.28 uIU/mL (0.32-4.0)
[2024-06-10 08:29] LABS: Appearance Urine Clear; Color Urine Yellow; Glucose Urine UA Negative (Negative); Leukocyte Esterase Urine Negative (Negative); Nitrite Urine Negative (Negative); Urine Blood Negative (Negative); Urine Ketones Negative (Negative); Urine Protein Negative (Neg-Trace)
== END 2024-06-10 07:07 | disposition home or self-care (01) ==
LOC: HO.LAB 07:06
PROVIDERS: PCP Internal Medicine; Visit Provider Internal Medicine
DX: S83.241A Other tear of medial meniscus, current injury, right knee, initial encounter (principal)
CPT/HCPCS: 36415; 80048; 80061; 80076; 81003; 84443; 85027

== ENCOUNTER 2024-06-10 15:28 | Outpatient (AMB) | payer OTHER, SELFPAY ==
--- NOTE | 2024-06-10 15:31 | MHC.PC.OV ---
Vital Signs 06/10/24 15:46 Height 5 ft 11 in Weight 177 lb 2 oz BMI 24.7 BP 132/90 H Blood Pressure Location Lt brachial Position Sitting Pulse 76 Pulse Source Pulse Oximeter Pulse Oximetry (%) 96 Oxygen Delivery Method Room Air Intake Visit Reasons: PE Intake Note: Patient is here today for a physical and lab results. Zinc Plate Cutter Required: No Auto Servicer: Not Required per policy Accompanied by: Self / Same As Patient Allergies No Known Allergies Allergy (Verified 06/11/24 12:17) Medication List - Last Reconciled 06/11/24 by Blaise Cloud MD No Known Home Meds Tobacco use date assessed: 06/10/24 Dental Screening Dental Screen Date: 06/10/24 Did you have a dental visit in the last 12 months?: Yes Did you have a dental problem in the last 6 months where you did not have access to dental care?: No Was dental information given to patient?: Patient has dentist HPI PE HPI Details 48-year-old male presents to the office for an annual physical. In addition patient wants to discuss his cardiac status. In the past he had a cardiac episode and had a CT done. Showed 20% stenosis in the coronary. Patient would like another stress test. Reports no symptoms of chest pain, shortness of breath, diaphoresis, nausea or vomiting. [facility], [facility] Medical History (Updated 06/11/24 @ 12:23 by Blaise Cloud MD) Sessile colonic polyp COVID-19 Myocarditis Surgical History Hx of colonoscopy (~06/21/22) Hx of straightening of nasal septum Social History Housing: House Alcohol intake: never Patient Tobacco Use Status: Never used Tobacco Tobacco use type: Cigarette e-Cigarette/Vaping Use: Never Used Second Hand Smoke Exposure: No service: No Current occupational status: employed Cognitive needs: No Hearing needs: No Vision needs: No Questionnaire PHQ-9 Over the last 2 weeks, how often have you been bothered by any of the following problems? 1. Little interest or pleasure in doing things: not at all 2. Feeling down, depressed, or hopeless: not at all 3. Trouble falling or staying asleep, or sleeping too much: several days 4. Feeling tired or having little energy: several days 5. Poor appetite or overeating: not at all 6. Feeling bad about yourself - or that you are a failure or have let yourself or your family down: not at all 7. Trouble concentrating on things, such as reading the newspaper or watching television: not at all 8. Moving or speaking so slowly that other people could have noticed. Or the opposite - being so fidgety or restless that you have been moving around a lot more than usual: not at all 9. Thoughts that you would be better off or of hurting yourself in some way: not at all Total score: 2 Depression Screening Interpretation: Negative Depression Screening Done: Yes Source: Developed by Drs. Matt Rehman, Ada Lee, Jonny Long and colleagues, with an educational tha from [employer]. Thrive Questionnaire Date Thrive assessed: 06/10/24 I am a: Patient What is your living situation today?: I have a steady place to live Within the past 12 months, did the food you bought not last and you didn't have the money to get more?: Never true Within the past 12 months, did you worry whether your food would run out before you got money to buy more?: Never true Do you have trouble paying for medicines?: No Do you have trouble getting transportation to medical appointments?: No Do you have trouble paying your heating and electricity bill?: No Do you have trouble taking care of your child, family member or friend?: No Do you have trouble with day-to-day activities such as bathing, preparing meals, shopping, managing finances, etc.?: No Are you currently unemployed and looking for a job?: No Are you interested in more education?: No Please select the resources that you would like help with: None Currently or been in a relationship where the following occur: No concerns reported THRIVE Score: 0 AUDIT C Alcohol Use Questionnaire (AUDIT-C) 1. How often do you have a drink containing alcohol?: Never Total Score: 0 EWA-7 AMB Questionnaire EWA-7 Date EWA - 7 assessed: 06/10/24 Feeling nervous, anxious, or on edge: 0 = Not at all Not being able to stop or control worryin = Not at all Worrying too much about different things: 0 = Not at all Trouble relaxin = Not at all Being so restless that it is hard to sit still: 0 = Not at all Becoming easily annoyed or irritable: 0 = Not at all Feeling afraid as if something awful might happen: 0 = Not at all Total WEA-7 score (0-4 normal; 5-9 mild; 10-14 moderate; 15-21 severe): 0 Source: Developed by Drs. Matt Rehman, Ada Lee, Jonny Long and colleagues, with an educational tha from [employer]. Physical exam (Primary Care) Vital Signs: Last Vital Signs Pulse 76 06/10/24 15:46 BP 132/90 H 06/10/24 15:46 Pulse Ox 96 06/10/24 15:46 Oxygen Delivery Method Room Air 06/10/24 15:46 Care Plan Goal for BP management: Blood pressure is in range. BMI result Body Mass Index 24.7 Tobacco/Smoking Status: Tobacco use Status Tobacco use date assessed 06/10/24 06/10/24 15:33 Patient Tobacco Use Status Never used Tobacco 06/10/24 15:56 Tobacco use type Cigarette 06/10/24 15:56 e-Cigarette/Vaping Use Never Used 06/10/24 15:56 PHQ-9: PHQ-9 Score PHQ-9: Total score 2 06/10/24 15:33 Depression Screening Interpretation: Negative Thrive Assessment: Date of Thrive Assessment Date Thrive assessed 06/10/24 06/10/24 15:33 Currently or been in a relationship where the following occur: No concerns reported Const General: cooperative and healthy appearing Nutritional Appearance: well nourished Orientation/consciousness: patient oriented x3 Limitations: no limitations HENMT Head: Yes normal to inspection Eyes General: appearance normal, both eyes and all related structures Neck Neck: Yes normal visual inspection Chest Chest palpation & inspection: normal palpation of entire chest wall Resp Effort & Inspection: normal respiratory effort Neuro General: patient oriented x3 Assessment and Plan Assessment & Plan (1) Annual physical exam: Code(s): Z00.00 - Encounter for general adult medical examination without abnormal findings Plan: Blood work reviewed with patient. Elevated cholesterol noted. Statin medication ordered. Patient reports that he may not be compliant with medications as he prefers not to take them. With history of cardiac disease, I strongly urged him to be on the statins. Patient is up-to-date on colonoscopy. (2) Myocarditis: Comment: ~2017 due to viral infection Code(s): I51.4 - Myocarditis, unspecified Plan: Condition has resolved. A nuclear stress test has been ordered. Orders: Orders NM cardiolite stress test Today I51.4 - Myocarditis, unspecified CA stress test Today I51.4 - Myocarditis, unspecified Medications: New atorvastatin 10 mg PO BEDTIME 90 tabs 1RF Coding Level of Care Code Est Pt Level 3 (67786) Est Pt Prev Care 40-64y(18221) Diagnoses Annual physical exam Z00.00 Myocarditis I51.4
[2024-06-10 15:46] VITALS: BP 132/90; PULSE 76; O2SAT 96; BMI 24.7
== END 2024-06-10 16:09 | disposition home or self-care (01) ==
PROVIDERS: PCP Internal Medicine; Visit Provider Internal Medicine
DX: Z00.00 Encounter for general adult medical examination without abnormal findings (principal); I51.4 Myocarditis, unspecified
CPT/HCPCS: 99213; 99396

== ENCOUNTER 2024-07-07 07:57 | Outpatient (AMB) | payer OTHER, SELFPAY ==
--- NOTE | 2024-07-07 08:10 | A.OFFVIS_ITS ---
Vital Signs 07/07/24 08:11 Height 5 ft 11 in Weight 177 lb BMI 24.7 Intake Visit Reasons: OV-LT knee pain/ injury-FOllow up Intake Note: Jaya a 48 year old male who presents today for a follow up of left knee. Patient reports he is doing better, however he still has some soreness when he wakes up in the morning. Allergies No Known Allergies Allergy (Verified 06/11/24 12:17) Medication List - Last Reconciled 07/07/24 by Nallely Proctor PA-C atorvastatin 10 mg PO BEDTIME HPI HPI OV-LT knee pain/ injury-FOllow up: Details: 48-year-old male who returns to the office today for a follow-up of left knee pain. He states he has improvement however he still has some soreness when he wakes up in the morning. He is doing well otherwise and has no concerns today. [facility] Medical History (Updated 06/11/24 @ 12:23 by Blaise Cloud MD) Sessile colonic polyp COVID-19 Myocarditis Surgical History Hx of colonoscopy (~06/21/22) Hx of straightening of nasal septum Social History Housing: House Alcohol intake: never Patient Tobacco Use Status: Never used Tobacco Tobacco use type: Cigarette e-Cigarette/Vaping Use: Never Used Second Hand Smoke Exposure: No service: No Current occupational status: employed Cognitive needs: No Hearing needs: No Vision needs: No Review of Systems Const All systems reviewed & are unremarkable except as noted in HPI and below Physical Exam Vital Signs: BMI result Body Mass Index 24.7 Const General: cooperative and no acute distress Orientation/consciousness: patient oriented x3 Resp Effort & Inspection: normal respiratory effort and able to speak in complete sentences Cardio Peripheral pulses: Peripheral pulses 2+ throughout Neuro General: patient oriented x3 Extrem Other: Left knee skin intact, no erythema or joint effusion. Tenderness along the medial joint line. ROM full with crepitus. Positive steinmans. No ligamentous laxity. NVI. Assessment & Plan Assessment & Plan (1) Internal derangement of left knee: Code(s): M23.92 - Unspecified internal derangement of left knee Category: Medical Plan She is overall doing well. She will return to work on 07/08/24 working full duty without restrictions. I did educate her on the importance of resting with increasing activities but she should increase activities as tolerated and follow-up if she has any question or concerns. Patient Instructions: Scribed for Nallely Proctor PA-C, by Trevon Lamar medical technologist blood bank, on 07/07/2024 at 8:15 AM EST.? I, Nallely Proctor PA-C, have personally reviewed and agree with the information entered by the scribe. Coding Level of Care Code Est Pt Level 3 (30809) Complex EM visit Add On G2211 Diagnoses Internal derangement of left knee M23.92
[2024-07-07 08:11] VITALS: BMI 24.7
== END 2024-07-07 08:56 | disposition home or self-care (01) ==
PROVIDERS: PCP Internal Medicine; Visit Provider Physician Assistant
DX: M23.92 Unspecified internal derangement of left knee (principal)
CPT/HCPCS: 99213

== ENCOUNTER → 2024-07-07 07:57 | Outpatient (BNVA) | payer OTHER, SELFPAY | PROVIDERS: PCP Internal Medicine; Visit Provider Physician Assistant ==

== ENCOUNTER → 2024-07-30 08:23 | Outpatient (REF) | payer OTHER, SELFPAY ==
--- NOTE | ~2024-07-30 | NM_ITS ---
EXERCISE MYOCARDIAL PERFUSION STUDY INDICATION: Myocarditis TECHNIQUE: The patient was brought in for an exercise perfusion study on 07/30/2024. Patient performed exercise as per Kyree protocol and was injected 25 mCi of sestamibi once target heart rate was achieved. Images were obtained using the SPECT gamma camera interlaced with the gating device. Images were obtained in supine position. Resting perfusion study was performed on 08/06/2024. Patient was administered 25 mCi of sestamibi intravenously at rest. Images were then obtained in supine position. Total DLP 45 mGy-cm. Images were processed with the software and compared side to side in short axis, horizontal long axis and vertical long axis views. FINDINGS: Raw aquisition reviewed. The stress perfusion study showed no significant perfusion abnormality. The gated study shows normal LV systolic function with calculated LVEF of 67%. LV cavity is normal in size. The gated study shows normal wall thickening and contraction of segments. Resting study shows decreased tracer uptake in the basal part of inferior wall. There is improvement with CT attenuation correction suggestive of diaphragmatic attenuation artifact. Gating at rest reveals normal wall motion with ejection fraction at 63%. The findings are consistent with no clear reversible or fixed perfusion defects. NM/NM cardiolite stress test IMPRESSION: 1. Myocardial perfusion imaging study shows probably normal myocardial perfusion. 2. Gated LVEF is 67% during stress and 63% during rest. 3. Transient ischemic dilatation not present. EKG component of the test reported separately. Electronically signed by: Emeka Parish MD 08/08/2024 10:07 AM [facility]
--- NOTE | 2024-07-30 08:25 | CA_ITS ---
Acquisition Time: 2024-07-30 08:30:13 Total Exercise Time: 00:10:30 Test Indications: MYOCARDITIS Medications: SEE H Protocol: CHIQUIS Max HR: 176 BPM 101% of Pred: 173 BPM Max BP: 206/100 mmHG Max Work Load: 12.5 METS Exercise stress test with exercise 10 min 30 sec of Chiquis protocol, achieving 101% MPHR, without anginal symptoms, without arrythmia, with hypertensive response to exercise with max BP 206/100, without EKG changes meeting criteria for ischemia. In recovery his BP came down to 144/94 . Nuclear images pending. Test reviewed with Dr Weaver Referred By: Blaise Cloud Overread By: WARREN GRACE
== END ==
LOC: HO.CARD 08:23
PROVIDERS: PCP Internal Medicine; Visit Provider Internal Medicine
DX: I51.4 Myocarditis, unspecified (principal)
CPT/HCPCS: 78452; 93017; A9500

== ENCOUNTER → 2024-07-30 08:25 | Outpatient (BNV) | payer OTHER, SELFPAY | PROVIDERS: PCP Internal Medicine; Visit Provider Nurse Practitioner Family | DX: R03.0 Elevated blood-pressure reading, without diagnosis of hypertension (principal); I51.4 Myocarditis, unspecified | CPT/HCPCS: 78452; 93016; 93018 ==

== ENCOUNTER 2025-07-01 12:41 | Outpatient (REF) | payer OTHER, SELFPAY ==
--- NOTE | ~2025-07-01 | US_ITS ---
EXAMINATION: US THYROID HISTORY: NODULE TECHNIQUE: Real-time grayscale ultrasound imaging was performed and images were reviewed. COMPARISON: There are no prior studies available for comparison. FINDINGS: SIZE: The right thyroid lobe measures 4.4 x 1.7 x 1.6 cm. The left thyroid lobe measures 5.1 x 1.4 x 1.4 cm. The isthmus measures 2 mm. FLOW: Flow to the gland is normal. ECHOGENICITY: The echotexture of the gland is homogeneous. NODULES: A single nodule is identified described below: Nodule #: 1 Location: Midportion of the right thyroid lobe measuring 9 x 6 x 8 mm. Shape: Wider than tall (0 points) Margins: Smooth (0 points) Echotexture: Isoechoic (1 point) Composition: Solid (2 points) Calcifications: Macrocalcifications (1 point) Total points: 4 TIRADS: TR4: Moderately suspicious. Incidental note is made of multiple prominent right-sided lymph nodes which are nonenlarged by imaging criteria. US/US thyroid IMPRESSION: Single right-sided nodule with imaging characteristics as described above. According to ACR TI-RADS guidelines, no additional workup is required. ACR TI-RADS Guidelines TR1 (0 points): Benign. No follow-up or biopsy required TR2 (2 points): Not Suspicious. No biopsy or follow up indicated TR3 (3 points): Mildly Suspicious. FNA if >= 2.5 cm, Follow if >= 1.5 cm TR4 (4-6 points): Moderately Suspicious. FNA if >= 1.5 cm, Follow if >= 1.0 cm TR5 (>=7 points): Highly Suspicious. FNA if >= 1.0 cm, Follow if >= 0.5 cm Electronically signed by: Matt Mejia MD 07/01/2025 02:06 PM EDT
== END 2025-07-01 12:42 | disposition home or self-care (01) ==
LOC: HO.US 12:41
PROVIDERS: Visit Provider Registered Nurse Emergency
DX: E04.1 Nontoxic single thyroid nodule (principal)
CPT/HCPCS: 76536

== ENCOUNTER → 2025-07-01 12:47 | Outpatient (BNV) | payer OTHER, SELFPAY | PROVIDERS: Visit Provider Radiology Diagnostic Radiology | DX: E04.1 Nontoxic single thyroid nodule (principal) | CPT/HCPCS: 76536 ==

== ENCOUNTER 2025-08-05 07:39 | Outpatient (REF) | payer OTHER, SELFPAY ==
[2025-08-05 08:56] LABS: Cholesterol 199 mg/dL (<200); HDL Cholesterol 37 mg/dL (>40); Triglycerides 115 mg/dL (<150)
[2025-08-09 18:43] LABS: Vitamin D 25-OH, D2 4 ng/mL; Vitamin D 25-OH, D3 25 ng/mL; Vitamin D 25-OH, Total 29 ng/mL (30-100)
== END 2025-08-05 07:40 | disposition home or self-care (01) ==
LOC: HO.LAB 07:39
PROVIDERS: PCP Internal Medicine; Visit Provider Nurse Practitioner Family
DX: E55.9 Vitamin D deficiency, unspecified (principal); Z13.6 Encounter for screening for cardiovascular disorders; Z86.79 Personal history of other diseases of the circulatory system
CPT/HCPCS: 36415; 80061; 82306

== ENCOUNTER 2025-08-10 09:02 | Outpatient (AMB) | payer OTHER, SELFPAY ==
--- NOTE | 2025-08-10 09:13 | A.OFFPC_ITS ---
Vital Signs 08/10/25 09:15 Height 5 ft 11 in Weight 169 lb 6 oz BMI 23.6 BP 122/80 Blood Pressure Location Lt brachial Position Sitting Pulse 83 Pulse Source Pulse Oximeter Temp 97.1 F Temp Source Temporal Artery Scan Pulse Oximetry (%) 97 Oxygen Delivery Method Room Air Intake Visit Reasons: PE - see comments Intake Note: Patient is here today for a physical. 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 Accompanied by: Self / Same As Patient Allergies No Known Allergies Allergy (Verified 08/10/25 09:14) Tobacco use date assessed: 08/10/25 Dental Screening Dental Screen Date: 08/10/25 Did you have a dental visit in the last 12 months?: Yes Did you have a dental problem in the last 6 months where you did not have access to dental care?: No Was dental information given to patient?: Patient has dentist [facility] Medical History (Updated 06/11/24 @ 12:23 by Blaise Cloud MD) Sessile colonic polyp COVID-19 Myocarditis Surgical History Hx of colonoscopy (~06/21/22) Hx of straightening of nasal septum Social History Housing: House Alcohol intake: never Patient Tobacco Use Status: Never used Tobacco Tobacco use type: Cigarette e-Cigarette/Vaping Use: Never Used Second Hand Smoke Exposure: No service: No Current occupational status: employed Cognitive needs: No Hearing needs: No Vision needs: No Questionnaire PHQ-9 Over the last 2 weeks, how often have you been bothered by any of the following problems? 1. Little interest or pleasure in doing things: not at all 2. Feeling down, depressed, or hopeless: not at all 3. Trouble falling or staying asleep, or sleeping too much: not at all 4. Feeling tired or having little energy: not at all 5. Poor appetite or overeating: not at all 6. Feeling bad about yourself - or that you are a failure or have let yourself or your family down: not at all 7. Trouble concentrating on things, such as reading the newspaper or watching television: not at all 8. Moving or speaking so slowly that other people could have noticed. Or the opposite - being so fidgety or restless that you have been moving around a lot more than usual: not at all 9. Thoughts that you would be better off or of hurting yourself in some way: not at all Total score: 0 Depression Screening Interpretation: Negative Depression Screening Done: Yes Source: Developed by Drs. Matt Rehman, Ada Lee, Jonny Long and colleagues, with an educational tha from [employer]. Thrive Questionnaire Date Thrive assessed: 06/27/25 I am a: Patient What is your living situation today?: I have a steady place to live Within the past 12 months, did the food you bought not last and you didn't have the money to get more?: Never true Within the past 12 months, did you worry whether your food would run out before you got money to buy more?: Never true Do you have trouble paying for medicines?: No Do you have trouble getting transportation to medical appointments?: No Do you have trouble paying your heating and electricity bill?: No Do you have trouble taking care of your child, family member or friend?: No Do you have trouble with day-to-day activities such as bathing, preparing meals, shopping, managing finances, etc.?: No Are you currently unemployed and looking for a job?: No Are you interested in more education?: No Please select the resources that you would like help with: None Currently or been in a relationship where the following occur: No concerns reported THRIVE Score: 0 AUDIT C Alcohol Use Questionnaire (AUDIT-C) 1. How often do you have a drink containing alcohol?: Never Total Score: 0 EWA-7 AMB Questionnaire EWA-7 Date EWA - 7 assessed: 08/10/25 Feeling nervous, anxious, or on edge: 0 = Not at all Not being able to stop or control worryin = Not at all Worrying too much about different things: 0 = Not at all Trouble relaxin = Not at all Being so restless that it is hard to sit still: 0 = Not at all Becoming easily annoyed or irritable: 0 = Not at all Feeling afraid as if something awful might happen: 0 = Not at all Total EWA-7 score (0-4 normal; 5-9 mild; 10-14 moderate; 15-21 severe): 0 Source: Developed by Drs. Matt Rehman, Ada Lee, Jonny Long and colleagues, with an educational tha from [employer]. Physical exam (Primary Care) Vital Signs: Last Vital Signs Temp 97.1 F 08/10/25 09:15 Pulse 83 08/10/25 09:15 BP 122/80 08/10/25 09:15 Pulse Ox 97 08/10/25 09:15 Oxygen Delivery Method Room Air 08/10/25 09:15 BMI result Body Mass Index 23.6 Tobacco/Smoking Status: Tobacco use Status Tobacco use date assessed 08/10/25 08/10/25 09:20 Patient Tobacco Use Status Never used Tobacco 08/10/25 09:20 Tobacco use type Cigarette 08/10/25 09:20 e-Cigarette/Vaping Use Never Used 08/10/25 09:20 PHQ-9: PHQ-9 Score PHQ-9: Total score 0 08/10/25 09:20 Depression Screening Interpretation: Negative Thrive Assessment: Date of Thrive Assessment Date Thrive assessed 06/27/25 08/10/25 09:20 Currently or been in a relationship where the following occur: No concerns reported Coding Level of Care Code New Pt Prev Care 40-64y(73197) Diagnoses Lower back pain M54.50 Annual physical exam Z00.00 Assessment & Plan Assessment & Plan (1) Lower back pain: Code(s): M54.50 - Low back pain, unspecified Plan: MRI has been ordered. (2) Annual physical exam: Code(s): Z00.00 - Encounter for general adult medical examination without abnormal findings Category: Medical Plan: History of Present Illness - The patient is a 49-year-old male presenting for an annual wellness visit and evaluation of low back pain. - He reports lower back pain, which is possibly work-related, that now radiates to his right hip and down his right side. - He had an MRI on his knee last year for an injury. - The patient is not currently taking his prescribed statin medication, stating he is trying to manage his cholesterol with diet and exercise. - His last blood work was performed over a year ago. - A thyroid nodule was incidentally discovered on a recent ultrasound, and he has an appointment scheduled with an insight director. - He has a history of myocarditis, which is now resolved, and a prior stress test was negative. - For health maintenance, he is due for a colonoscopy and has already scheduled it. - He declined the influenza vaccine during this visit. Social History - Employment: Patient believes his low back pain is possibly related to his work. - Exercise: Reports trying to exercise. - Diet: Reports trying to eat healthy. Review of Systems - Musculoskeletal: Reports lower back pain radiating to the right hip and down the right side. - Endocrine: Reports a recently discovered thyroid nodule. - Cardiovascular: Denies new symptoms related to his resolved myocarditis. Physical Exam General: Cooperative and healthy appearing Nutritional Appearance: Well nourished Orientation/consciousness: Patient oriented x3 Limitations: No limitations Head: Normal to inspection General: Appearance normal, both eyes and all related structures Neck: Normal visual inspection Chest: Normal palpation of entire chest wall Respiratory: Breath okay ormal respiratory effort Neurology: Patient oriented x3, reports lower back pain radiating to the right hip Results - Tests: A prior stress test was negative. - Procedures: An ultrasound found a nodule on his thyroid. Plan - Order an MRI of the lumbar spine without contrast to evaluate low back pain with radiculopathy. - Prescribe lidocaine patches for symptomatic pain relief. - Order fasting blood work including CBC, cholesterol, liver function tests, electrolytes, glucose, and a urinalysis. - Patient to continue with lifestyle modifications (diet and exercise) for cholesterol management. - Patient to follow up with endocrinology for evaluation of a thyroid nodule. - Patient will proceed with his scheduled colonoscopy for routine screening. - Patient declined the influenza vaccine. - Patient advised to follow up in one year or sooner if needed. Discussion Notes I discussed the patient's low back pain radiating to his right hip. We agreed to proceed with an MRI of the lumbar spine without contrast, bypassing initial physical therapy due to his insurance and concerns about worsening a potential injury. I prescribed lidocaine patches for symptomatic relief. We reviewed the need for updated labs, and I have ordered fasting blood work and a urinalysis. We noted his upcoming appointment with an insight director for a recently found thyroid nodule and his scheduled colonoscopy. The patient understood the recommendations and declined the flu shot today. He will follow up in one year for his next annual exam, or sooner if his symptoms change. Patient Instructions - Please go to the lab for fasting blood work and a urine test. - An an order for an MRI of your lower back has been placed. - A prescription for lidocaine patches has been sent to the pharmacy for your back pain. - Keep your appointment with the insight director to check on the thyroid nodule. - Please proceed with your scheduled colonoscopy. - Continue trying to manage your cholesterol with a healthy diet and exercise. - Please schedule a follow-up visit in about one year for your next physical. Orders: Orders MR lumbar spine wo con Today M54.50 - Low back pain, unspecified Thyroid Stimulating Hormone Today Z00.00 - Encounter for general adult medical examination without abnormal findings UA and rflx microscopic Today Z00.00 - Encounter for general adult medical examination without abnormal findings Prostate Specific Antigen Scr Today Z00.00 - Encounter for general adult medical examination without abnormal findings Liver Panel Today Z00.00 - Encounter for general adult medical examination without abnormal findings Lipid Panel Today Z00.00 - Encounter for general adult medical examination without abnormal findings Complete Blood Count no Diff Today Z00.00 - Encounter for general adult medical examination without abnormal findings Basic Metabolic Panel Today Z00.00 - Encounter for general adult medical examination without abnormal findings Medications: New lidocaine 4% (Aspercreme (lidocaine)) 1 patch topical DAILY PRN 30 ea 0RF pain
[2025-08-10 09:15] VITALS: BP 122/80; PULSE 83; TEMP 36.2; O2SAT 97; BMI 23.6
== END 2025-08-10 09:56 | disposition home or self-care (01) ==
LOC: HO.HMCH 09:03
PROVIDERS: Visit Provider Internal Medicine
DX: Z00.00 Encounter for general adult medical examination without abnormal findings (principal); M54.50 Low back pain, unspecified

== ENCOUNTER 2025-08-15 10:22 | Outpatient (REF) | payer OTHER, SELFPAY ==
--- NOTE | ~2025-08-15 | MR_ITS ---
EXAMINATION: MR LUMBAR SPINE WITHOUT CONTRAST CLINICAL INFORMATION: M 54.50. Low back pain. COMPARISON: None available. TECHNIQUE: MRI of the lumbar spine was obtained using routine sequences without contrast. FINDINGS: Last rib-bearing vertebra labeled T12.. Bone marrow STIR signal in the endplates of L5-S1. Mild multilevel disc desiccation and marginal osteophyte formation pronounced at L5-S1. Normal alignment. Conus medullaris and cephalad pedicle of L1 with normal signal. T11-12: No disc herniation. No neuroforamina stenosis. T12-L1: No disc herniation. No neuroforamina stenosis. L1-2: No disc herniation. No neuroforamina stenosis. L2-3: Broad-based disc bulging. Facet joint hypertrophy. No central spinal canal or neuroforamina stenosis. L3-4: Broad-based disc bulging. Facet joint hypertrophy. No central spinal canal stenosis. Bilateral neuroforamina narrowing. L4-5: Broad-based disc bulging. Facet joint hypertrophy. Reduced AP diameter of the thecal sac. Bilateral, right greater than left neuroforamina stenosis encroaching the right L4 exiting nerve root. L5-S1: Left subarticular broad-based herniated disc abutting the left S1 nerve root. Facet joint hypertrophy. Bilateral neuroforamina stenosis encroaching the L5 exiting nerve roots. No prevertebral compartment hematoma, mass or fluid collection. Slight asymmetric right psoas muscle. MR/MR lumbar spine wo con IMPRESSION: Spondylosis at L5-S1 and associated left subarticular broad-based herniated disc abutting the left S1 nerve root and bilateral neuroforamina stenosis encroaching the L5 exiting nerve roots. Spondylosis at L4-5 encroaching right L4 exiting nerve root. Electronically signed by: Henry Cespedes MD 08/15/2025 11:04 AM EST
== END 2025-08-15 10:23 | disposition home or self-care (01) ==
LOC: HO.MRI 10:22
PROVIDERS: Visit Provider Internal Medicine
DX: M54.50 Low back pain, unspecified (principal)
CPT/HCPCS: 72148

== ENCOUNTER → 2025-08-15 10:26 | Outpatient (BNV) | payer OTHER, SELFPAY | PROVIDERS: Visit Provider Radiology Diagnostic Radiology | DX: M54.50 Low back pain, unspecified (principal) | CPT/HCPCS: 72148 ==

== ENCOUNTER 2025-08-19 09:00 | Outpatient (AMB) | payer OTHER, SELFPAY ==
[2025-08-19 09:04] VITALS: BP 112/80; PULSE 87; O2SAT 97; BMI 24.0
--- NOTE | 2025-08-19 09:04 | A.OFFVIS_ITS ---
Vital Signs 08/19/25 09:04 Height 5 ft 11 in Weight 171 lb 15.369 oz BMI 24.0 BP 112/80 Blood Pressure Location Rt brachial Position Sitting Pulse 87 Pulse Source Pulse Oximeter Pulse Oximetry (%) 97 Oxygen Delivery Method Room Air Intake Visit Reasons: nontoxic single thyroid nodule Intake Note: NEW Patient presents today to establish care for Nontoxic Single Thyroid Nodule: * US Thyroid: Completed on 07/01/2025 Accompanied by: Self / Same As Patient Allergies No Known Allergies Allergy (Verified 08/19/25 09:05) HPI Comments Details: 49 years old male with past medical history of sessile colonic polyps, myocarditis, seen in the office for evaluation of a single thyroid nodule. Incidental thyroid nodule during a test of ultrasound machines. He reports feeling always tired Sleeps well, not reports of snores but he wakes multiple times during the day Weight stable No heat or cold intolerance No constipation or diarrhea No hair loss or falling hair No dysphagia or bolus sensation History of thyroid nodules in sister. No thyroid cancer history known No biotin Physical exam: General: Well appearing. NAD. Neck/Thyroid: Thyroid not palpable, no nodules. Eyes: No conjunctival injection, not lid lag or proptosis CV: RRR, no murmur. No edema. Resp:Lungs clear to auscultation bilaterally Abdomen: Soft, nontender. nondistended Extremities/Neuro: No weakness or tremor of outstretched hands Laboratory Tests 07/01/23 06/10/24 08:30 07:13 TSH 1.26 1.28 Thyroid US 07/01/25 FINDINGS: SIZE: The right thyroid lobe measures 4.4 x 1.7 x 1.6 cm. The left thyroid lobe measures 5.1 x 1.4 x 1.4 cm. The isthmus measures 2 mm. FLOW: Flow to the gland is normal. ECHOGENICITY: The echotexture of the gland is homogeneous. NODULES: A single nodule is identified described below: Nodule #: 1 Location: Midportion of the right thyroid lobe measuring 9 x 6 x 8 mm. Shape: Wider than tall (0 points) Margins: Smooth (0 points) Echotexture: Isoechoic (1 point) Composition: Solid (2 points) Calcifications: Macrocalcifications (1 point) Total points: 4 TIRADS: TR4: Moderately suspicious. Incidental note is made of multiple prominent right-sided lymph nodes which are nonenlarged by imaging criteria. IMPRESSION: Single right-sided nodule with imaging characteristics as described above. According to ACR TI-RADS guidelines, no additional workup is required. [facility] Medical History (Updated 08/19/25 @ 09:24 by Ihsan Saldivar MD) Sessile colonic polyp COVID-19 Myocarditis Surgical History Hx of colonoscopy (~06/21/22) Hx of straightening of nasal septum Social History Housing: House Alcohol intake: never Patient Tobacco Use Status: Never used Tobacco Tobacco use type: Cigarette e-Cigarette/Vaping Use: Never Used Second Hand Smoke Exposure: No service: No Current occupational status: employed Cognitive needs: No Hearing needs: No Vision needs: No Physical Exam Vital Signs: Last Vital Signs Pulse 87 08/19/25 09:04 BP 112/80 08/19/25 09:04 Pulse Ox 97 08/19/25 09:04 Oxygen Delivery Method Room Air 08/19/25 09:04 BMI result Body Mass Index 24.0 Assessment & Plan Assessment & Plan (1) Thyroid nodule incidentally noted on imaging study: Code(s): E04.1 - Nontoxic single thyroid nodule Category: Medical Plan: Subcentimeter right thyroid nodule measuring 0.9x0.6 x 0.8 cm, incidentally found. No known family history of thyroid cancer, although his sister had thyroid nodules that were biopsied (unknown results, patient does not believe it was cancer). There was also reported prominent lymph nodes that were reported as not enlarged. Thyroid nodules are highly prevalent, affecting up to 60?65% of the general population, with most being benign. The risk of malignancy in thyroid nodules is relatively low, estimated at 4?6.5%. Most nodules are discovered incidentally due to the widespread use of imaging. Malignant potential is assessed using clinical risk factors, ultrasound features (such as microcalcifications, irregular margins, hypoechogenicity, and [id number] shape), and, in indeterminate cases, molecular testing. The majority of thyroid cancers detected are small, indolent papillary carcinomas with excellent prognosis. At this point discussed with the patient that we would repeat the ultrasound in 1 year and if there is no changes in size or characteristics, it does not need to be followed after. Plan: - Continue monitoring the thyroid nodule with annual ultrasound if no changes occur. - Conduct TSH testing to confirm current thyroid function status. - Recommend addressing mild neuropathy with the primary care provider. - Discuss lifestyle modifications for fatigue management, including sleep hygiene and stress reduction. - Educate the patient on the importance of follow-up appointments and monitoring thyroid function. Patient Instructions: - Return for repeat TSH testing. - Monitor for any changes in symptoms or nodule size. - Maintain a balanced diet and adequate sleep schedule. - Report any new symptoms such as significant fatigue, weight changes, or neck swelling. Follow-Up: - Follow up in one year with a repeat thyroid ultrasound to monitor the nodule. - Schedule TSH check as indicated. - More frequent follow-up if symptoms change Coding Level of Care Code New Pt Level 3 (99191) Diagnoses Thyroid nodule incidentally noted on imaging study E04.1
== END 2025-08-19 09:27 | disposition home or self-care (01) ==
LOC: HO.ENCR 09:01
PROVIDERS: Visit Provider Student in an Organized Health Care Education/Training Program
DX: E04.1 Nontoxic single thyroid nodule (principal)
CPT/HCPCS: 99203

== ENCOUNTER 2025-08-22 06:43 | Outpatient (REF) | payer OTHER, SELFPAY ==
[2025-08-22 07:20] LABS: Hematocrit 46.9 % (42.0-52.0); Hemoglobin 16.2 g/dl (14.0-18.0); Mean Corpuscular HGB Conc 34.5 g/dl (31.0-36.0); Mean Corpuscular Hemoglobin 29.8 pg (27.0-33.0); Mean Corpuscular Volume 86.4 fL (80.0-98.0); NRBC Abs Auto 0.000 X10*3/uL (0.0-0.012); NRBC Pct Auto 0.0 /100WBC (0.0-0.2); Platelet Count 210 X10*3/uL (160-400); Red Blood Count 5.43 X10*6/uL (4.60-5.80); White Blood Count 4.3 X10*3/uL (4.8-10.8)
[2025-08-22 07:51] LABS: Alanine Aminotransferase 18 U/L (0-40); Albumin Level 4.8 g/dL (3.5-5.0); Alkaline Phosphatase 46 U/L (39-117); Anion Gap 12 (12-20); Aspartate Amino Transferase 19 U/L (5-37); Blood Urea Nitrogen 18 mg/dL (9-16); Calcium 8.9 mg/dL (8.4-10.2); Carbon Dioxide 27 mmol/L (22-29); Chloride 107 mmol/L (96-108); Cholesterol 179 mg/dL (<200); Estimated Glomerular Filt Rate > 60; HDL Cholesterol 42 mg/dL (>40); Potassium 4.8 mmol/L (3.3-5.1); Sodium 141 mmol/L (135-145); Total Protein 7.0 g/dL (6.5-8.0); Triglycerides 110 mg/dL (<150)
[2025-08-22 08:08] LABS: Thyroid Stimulating Hormone 1.34 uIU/mL (0.32-4.0)
== END 2025-08-22 06:44 | disposition home or self-care (01) ==
LOC: HO.LAB 06:43
PROVIDERS: PCP Internal Medicine; Visit Provider Internal Medicine
DX: Z00.00 Encounter for general adult medical examination without abnormal findings (principal); Z12.5 Encounter for screening for malignant neoplasm of prostate; Z13.6 Encounter for screening for cardiovascular disorders; Z13.29 Encounter for screening for other suspected endocrine disorder
CPT/HCPCS: 36415; 80048; 80061; 80076; 84153; 84443; 85027

== ENCOUNTER 2025-08-23 09:13 | Outpatient (REF) | payer OTHER, SELFPAY ==
[2025-08-23 09:50] LABS: Appearance Urine Clear; Glucose Urine UA Negative (Negative); PH 5.5 (5.0-9.0); Specific Gravity - Urine 1.025 (1.005-1.025)
== END 2025-08-23 09:14 | disposition home or self-care (01) ==
LOC: HO.LNP 09:13
PROVIDERS: Visit Provider Internal Medicine
DX: Z00.00 Encounter for general adult medical examination without abnormal findings (principal)
CPT/HCPCS: 81003

== ENCOUNTER 2025-09-21 13:53 | Outpatient (AMB) | payer OTHER, SELFPAY ==
--- NOTE | 2025-09-21 14:00 | A.SPINEOV_ITS ---
Intake Visit Reasons: low back pain Intake Note: Mr. Uribe is here today c/o low back pain. [place] [facility] [place]ergies No Known Allergies Allergy (Verified 08/19/25 09:05) Assessment & Plan Assessment & Plan (1) Degenerative disc disease, lumbar: Code(s): M51.369 - Other intervertebral disc degeneration, lumbar region without mention of lumbar back pain or lower extremity pain Category: Medical Plan Dear colleague Thank you for referring Jaya Jurado to the office today with a chief complaint of chronic low back pain HPI: This 49-year-old male has a more than 10 year history of low back pain. The pain is located in the lumbar sacral area more towards the left side. The pain increases with activity. In rest it is more manageable. His work requires him to lift a lot and that again can aggravate the symptoms. The pain is present every day around a 2-3 out of 10. Sleeping is not disturbed. He denies radiation down his legs. Exercise improves the symptoms. He had physical therapy in [place] that also helped with the symptoms. Currently he is having lidocaine patches 5% to treat the symptoms. This works better than Tylenol or ibuprofen. In addition to medications he uses heat and stretching. He has not tried any form of injections. PMH: Viral myocarditis in 2017 Medications: Lidocaine patch 5% Allergies: NKDA Social history: with 2 children. Employed. Nonsmoker Physical Exam: Pleasant male height 5'11 weight 180 lb. He is able to move his lumbar spine in all directions without difficulties. Straight leg raise is negative. SI joint provocative tests are negative. No deficits for motor sensation or reflexes Radiological Studies: MRI done at [facility] on 08/15/2025 shows severe lumbar degenerative disc disease L5-S1 with Modic changes. The remainder of the spine is normal for his age. Impression/Plan: This patient is suffering from chronic back pain that has been stable for the last 10 years. He does not need medication for pain control. We discussed an L5-S1 lumbar fusion through an anterior approach as an option if conservative management fails and he finds the symptoms are debilitating. I demonstrated the implant on an x-ray and explained the procedure. He will return to my clinic when he thinks he wants to undergo surgery. I quoted a 65% success rate to alleviate his back pain. Thank you for allowing me to participate in your patients care. total time spent was 50 minutes in counseling ,coordination of plan, personal review of imaging, surgical decision making and subsequent plan Zhen Wang MD, PhD Spine Fellowship Trained Neurosurgeon Director, [facility] Coding Level of Care Code New Pt Level 4 (28111) Diagnoses Degenerative disc disease, lumbar M51.369
== END 2025-09-21 15:24 | disposition home or self-care (01) ==
LOC: HO.HNS 13:54
PROVIDERS: PCP Internal Medicine; Referring Provider Internal Medicine; Visit Provider Neurological Surgery
DX: M51.369 Other intervertebral disc degeneration, lumbar region without mention of lumbar back pain or lower extremity pain (principal)
CPT/HCPCS: 99204

== ENCOUNTER 2025-09-28 09:04 | Outpatient (REF) | payer OTHER, SELFPAY ==
[2025-09-28 10:05] LABS: Resp Syncy Virus RNA Qual PCR POSITIVE (Negative); SARS COV2 PCR INHOUSE NEGATIVE (Negative)
== END 2025-09-28 09:05 | disposition home or self-care (01) ==
LOC: HO.LAB 09:04
PROVIDERS: PCP Internal Medicine; Visit Provider Internal Medicine
DX: Z03.818 Encounter for observation for suspected exposure to other biological agents ruled out (principal)
CPT/HCPCS: 87637

== ENCOUNTER 2025-10-03 07:32 | Day surgery (SDC) | payer OTHER, SELFPAY ==
--- NOTE | 2025-09-27 11:16 | HO.ANESPROP2 ---
Documented by User: Polly Osborn NP 09/27/25 11:18 HPI - Anesthesia Eval Consult details Narrative: 49 yr old male for colonoscopy H/O myocarditis 2017 with negative cardiac cath and CTA for dissection at that time [facility] Active Problems Active Problems: All Active Problems (Updated 09/21/25 @ 14:40 by Zhen Wang MD, PhD) Degenerative disc disease, lumbar (Acute) Thyroid nodule incidentally noted on imaging study (Acute) Myocarditis (Acute) Internal derangement of left knee (Acute) Tear of medial meniscus of right knee (Acute) Sessile colonic polyp (Acute) Muscle twitching (Acute) Annual physical exam (Acute) Screening for colon cancer (Acute) Past Medical History Medical History Sessile colonic polyp COVID-19 Myocarditis Surgical History Surgical History Hx of colonoscopy (~06/21/22) Hx of straightening of nasal septum History of Problems with Anesthesia: No Social History Social History Housing: House Alcohol intake: never Patient Tobacco Use Status: Never used Tobacco Tobacco use type: Cigarette e-Cigarette/Vaping Use: Never Used Second Hand Smoke Exposure: No Use of substances other than those prescribed or required for medical reasons: No Are you DNR?: No Advance Directives: No Advance Directives Information Provided: Yes service: No Current occupational status: employed Cognitive needs: No Hearing needs: No Vision needs: No Meds Allergies Allergy/AdvReac Type Severity Reaction Status Date / Time No Known Allergies Allergy Verified 10/03/25 07:39 Home Medications ?Medication ?Instructions ?Recorded ?Confirmed ?Last Taken ?Type lidocaine 5 % topical patch 1 patch topical DAILY PRN Pain 08/19/25 10/03/25 Unknown History Exam Pertinent Lab Results Pertinent Lab Results: Laboratory Tests 08/22/25 06:57 WBC 4.3 L RBC 5.43 Hgb 16.2 Hct 46.9 Plt Count 210 Sodium 141 Potassium 4.8 BUN 18 H Creatinine 0.86 Narrative Narrative: Exercise Stress test 2023 Exercise stress test with exercise 10 min 30 sec of Kyree protocol, achieving 101% MPHR, without anginal symptoms, without arrythmia, with hypertensive response to exercise with max BP 206/100, without EKG changes meeting criteria for ischemia. In recovery his BP came down to 144/94 . Nuclear images pending. Test reviewed with Dr Weaver Assessment and Plan Assessment Anesthesia Assessment: Chart Reviewed Final Anesthetic Review History of Problems with Anesthesia: No Documented by User: Jeaneth Ring MD 10/03/25 07:59 PMFSH Past Medical History Medical History Sessile colonic polyp COVID-19 Myocarditis Family History Family history of problems with anesthesia: No Surgical History Surgical History Hx of colonoscopy (~06/21/22) Hx of straightening of nasal septum Social History Social History Housing: House Alcohol intake: never Patient Tobacco Use Status: Never used Tobacco Tobacco use type: Cigarette e-Cigarette/Vaping Use: Never Used Second Hand Smoke Exposure: No Use of substances other than those prescribed or required for medical reasons: No Are you DNR?: No Advance Directives: No Advance Directives Information Provided: Yes service: No Current occupational status: employed Cognitive needs: No Hearing needs: No Vision needs: No Meds Allergies Allergy/AdvReac Type Severity Reaction Status Date / Time No Known Allergies Allergy Verified 10/03/25 07:39 Home Medications ?Medication ?Instructions ?Recorded ?Confirmed ?Last Taken ?Type lidocaine 5 % topical patch 1 patch topical DAILY PRN Pain 08/19/25 10/03/25 Unknown History Exam Airway Mallampati Class: III Heart: rrr Lungs: cta Assessment and Plan Assessment Anesthesia Assessment: Anesthesia Plan Discussed Final Anesthetic Review Family History of Problems with Anesthesia: No NPO: Yes ASA Class: III Final Preanesthetic Review: No Changes in Pt Med Stat, Meds/Allgs Chart Reviewed, Consent Obtained/Reviewed and Anes Risks/Benef Reviewed Patient Risk: Intermediate Procedure Risk: Low Anesthetic Plan Anesthetic Plan: MAC: and Agree w/ Assess. and Plan Disposition: Standard PACU
[2025-09-27 11:35] VITALS: BMI 25.8
[2025-10-03 07:39] VITALS: BMI 23.4
--- NOTE | 2025-10-03 07:42 | MHC.SHP ---
Pre-Procedural Eval Section A - 24 Hr Update-Section A only Date of Service: 10/03/25 The patient is an INPATIENT: No The patient has been examined within 24 hours of the surgical procedure. 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) History of Previous Operations: Relevant previous surgery/procedure and date(s) (Hx of colonoscopy (~06/21/22) Hx of straightening of nasal septum) Allergies: Allergies Allergy/AdvReac Type Severity Reaction Status Date / Time No Known Allergies Allergy Verified 10/03/25 07:39 Review of Systems Sugical H&P ROS: Negative: Constitution, Cardiovascular, Respiratory and Gastrointestinal Exam Surgical H&P Exam: Normal: Heart, Normal: Lungs, Normal: Extremities and Normal: Abdomen Plan Diagnosis/Plan: Change (Proceed with colonoscopy for follow-up of colon polyps) I have reviewed the history and physical and performed a pertinent physical examination on my patient. No changes have occurred unless specified. Time Spent With Patient Time: Total time managing care of this patient today ____ minutes.
[2025-10-03 07:46] VITALS: BP 144/97; PULSE 86; RESP 14; TEMP 36.9; O2SAT 97
[2025-10-03] MEDS: Lactated Ringers 1,000 ML 100 ML IVCONT (07:56)
--- NOTE | 2025-10-03 09:09 | HO.OPN-COLON ---
Colonoscopy Operative Note Operative Note Date of Service: 10/03/25 Narrative: COLONOSCOPY TILL CECUM WITH BIOPSIES AND SNARE POLYPECTOMY Pre-op diagnosis: Surveillance for colon polyps. Post-op diagnosis:? Colon polyps, hemorrhoids Endoscopist:? Nichelle Cuellar MD Anesthesia:?MAC Consent: Indications for the procedure and potential complications of bleeding, perforation, reaction to medications and missed diagnosis were discussed with the patient and informed consent was obtained. Instrument: Olympus CF H 190 L variable stiffness adult colonoscope Monitoring: Vital signs and clinical assessment, intermittent blood pressure monitoring, continuous EKG monitoring, Pulse oximetry and Carbon Dioxide monitoring were done throughout the procedure. Please see anesthesia flowsheet. Colon withdrawl time was 20 minutes. Procedure: The patient was placed in the left lateral decubitis position and pre-procedure medications were administered. After a digital rectal examination of the ano-rectum, the video colonoscope was inserted into the rectum and advanced through the colon to the cecum. The colonoscope was slowly withdrawn in a retrograde panoramic fashion and the colon mucosa was carefully examined including a retroflexed view of the rectum. Findings and interventions are described below. Procedure Difficulty: without difficulty Findings: Terminal Ileum: Not evaluated Cecum: A 5-6 mm sessile polyp - removed with a cold snare. Ascending Colon: Normal Transverse Colon: A 3-4 mm sessile polyp - removed with a cold biopsy. Descending Colon: A 4-5 mm sessile polyp - removed with a cold snare. Sigmoid Colon: Normal Rectum: Normal Ano-rectum: Small internal hemorrhoids Colon preparation: Excellent, after some irrigation. [place] Bowel Preparation Scale Right colon; 3 Transverse colon: 3 Left colon; 3 (0 = Unprepared colon segment with mucosa not seen due to solid stool that cannot be cleared. 1 = Portion of mucosa of the colon segment seen, but other areas of the colon segment not well seen due to staining, residual stool and/or opaque liquid. 2 = Minor amount of residual staining, small fragments of stool and/or opaque liquid, but mucosa of colon segment seen well. 3 = Entire mucosa of colon segment seen well with no residual staining, small fragments of stool or opaque liquid) Impression and Post Procedure Diagnosis: Colonoscopy Findings: Three small polyps were removed Small hemorrhoids on retroflexed exam. Plan: I will send a letter with biopsy results. Repeat Colonoscopy in 3-5 years if polyps are adenomatous and due to a history of adenomatous colon polyps . Above findings were reviewed with the patient and relevant handouts were given and the discharge area.
[2025-10-03 09:14] VITALS: BP 92/57; PULSE 78; RESP 16; TEMP 36.8; O2SAT 100
[2025-10-03 09:29] VITALS: BP 115/82; PULSE 70; RESP 16; TEMP 36.5; O2SAT 97
== END 2025-10-03 10:34 | disposition home or self-care (01) ==
PROVIDERS: PCP Internal Medicine; Visit Provider Internal Medicine Gastroenterology
PROC: 0DJD8ZZ Inspection of Lower Intestinal Tract, Via Natural or Artificial Opening Endoscopic (ICD-10-PCS; CPT 45378; principal; 2025-10-03 08:30)
DX: Z12.11 Encounter for screening for malignant neoplasm of colon (principal); Z86.0101 Personal history of adenomatous and serrated colon polyps; K64.8 Other hemorrhoids; D12.0 Benign neoplasm of cecum; K63.5 Polyp of colon
CPT/HCPCS: 45380; 45385; 88305; J2003; J2704; J3010

== ENCOUNTER → 2025-10-03 07:32 | Outpatient (BNV) | payer OTHER, SELFPAY | PROVIDERS: PCP Internal Medicine; Visit Provider Internal Medicine Gastroenterology | DX: Z12.11 Encounter for screening for malignant neoplasm of colon (principal); K63.5 Polyp of colon; K64.8 Other hemorrhoids | CPT/HCPCS: 45385 ==